=== PATIENT | male | born 1935 | race Caucasian/White ===

== ENCOUNTER 2024-03-25 21:19 | Inpatient (IN) | payer MEDICARE, SELFPAY ==
[2024-03-25] VITALS (9 sets, daily range): BP systolic 122–147; BP diastolic 65–105; BMI 18.0
[2024-03-25 17:25] LABS: % Basophils 0.3 % (0-2); % Immature Granulocytes 1.3 % (0-0.5); % Lymphocytes 10.7 % (20.5-51.1); % Monocytes 6.2 % (1.7-9.3); % Neutrophils 78.5 % (42.2-75.2); Absolute Eosinophils 0.3 10^3/uL (0-0.7); Absolute Immature Granulocytes 0.1 10^3/uL (0-0.05); Absolute Lymphocytes 1.1 10^3/uL (1.2-3.4); Absolute Monocytes 0.6 10^3/uL (0.1-0.6); Absolute Neutrophils 7.7 10^3/uL (1.4-6.5); Hematocrit 27.4 % (39.0-52.0); Hemoglobin 9.1 g/dL (13.0-18.0); Mean Corp Hgb Conc. 33.2 g/dL (33.0-37.0); Mean Corpuscular Volume 99.3 fL (80.0-94.0); Mean Platelet Volume 11.2 fL (7.4-10.4); Nucleated Red Blood Cells % 0 % (-); Platelet Count 167 10^3/uL (130-400); Red Blood Cell Count 2.76 10^6/uL (4.70-6.10); Red Cell Dist. Width 13.9 % (11.5-14.5); White Blood Cell Count 9.8 10^3/uL (4.8-10.8)
[2024-03-25 17:25] LABS: Urine Albumin Negative (Neg - Trace); Urine Bilirubin Negative (Negative); Urine Character Clear (Clear); Urine Color Yellow; Urine Glucose Negative (Negative); Urine Ketone Negative (Negative); Urine Leukocyte Trace (Negative); Urine Nitrite Negative (Negative); Urine Occult Blood Negative (Negative); Urine Urobilinogen Negative (Neg - 1+)
[2024-03-25 17:41] LABS: AST (SGOT) 26 U/L (17-59); Albumin 4.1 g/dl (3.5-5.0); Alkaline Phosphatase 72 U/L (38-126); Blood Urea Nitrogen 62 mg/dl (9-20); Calcium 9.9 mg/dl (8.4-10.2); Carbon Dioxide 27 mmol/L (22-30); Chloride 102 mmol/L (98-107); Glucose 125 mg/dl (70-99); Potassium 4.6 mmol/L (3.5-5.1); Sodium 140 mmol/L (135-145); Total Bilirubin 0.6 mg/dl (0.2-1.3); Total Protein 7.5 g/dl (6.3-8.2); eGFR 12.94
[2024-03-25 17:43] LABS: Urine Bacteria Few (Negative); Urine White Cell 16-20 /HPF (0-5)
[2024-03-25 17:48] LABS: ALT (SGPT) 12 U/L (0-50)
[2024-03-25 18:04] LABS: Erythrocyte Sed Rate 119 mm/hour (0-20)
[2024-03-25 18:27] LABS: Vitamin B12 > 1000 pg/ml (239-931)
--- NOTE | 2024-03-25 19:10 | ED.GENMED ---
History of Present Illness
General
Chief Complaint: Failure to Thrive
Time Seen by Provider: 03/25/24 18:34
History of Present Illness
History of Present Illness:
80-year-old male presents the emergency department with his son for evaluation of intermittent periods of confusion over the past week. He apparently had some difficulties urinating last week and saw his primary care physician, was started on
antibiotic for presumed UTI. He apparently had abdominal pain at that time which is since resolved. Son notes that he continues to have copious amounts of urine output and intermittent confusion over the past several days as well. Patient denies
any complaints at this time
Past History
Past History
ED Past Medical History: CAD, GERD, HTN, Hypercholesterolemia and Valvular disease; Negative Arrthythmia, Cancer or CVA
ED Past Surgical History: Appendectomy, Cardiac and Orthopedic
Social History
Tobacco: Non-smoker
Alcohol: None
Drug: None
Personal:
Living: alone
Employment: Retired
Review of Systems
Review of Systems
Allergies reviewed?: Yes
Phy Exam
Physical Exam
Physical Exam:
GEN: Thin, underweight, not cachectic
Eyes: PERRLA, EOMs intact, no scleral icterus
HENT: NCAT, oral mucosa moist
Lungs: CTAB, no wheezes, rales, rhonchi, normal chest wall excursion
Cardiac: RRR, no M/R/G, no peripheral edema. Radial pulses 2+ bilat
Abdomen: Soft however prominent suprapubic distention is noted
Neuro: AO x 3
MSK: No gross deformity or ecchymosis. No edema. No digital clubbing
Skin: No rashes, petechiae. Normal color, no pallor or jaundice.
Psych: Calm, cooperative, proper hygiene
Course
Orders/Labs/Results
Orders:
Orders
03/25/24 Breakfast
Cholesterol Lowering
At Your Request: Limited Participation
Cholesterol Lowering: Sodium, 2 Gram
03/25/24 17:05
Complete Blood Count/With Diff Urgent
Comprehensive Metabolic Panel Urgent
Erythrocyte Sed Rate Urgent
Vitamin B12 Urgent
03/25/24 17:15
Urinalysis Reflex To Culture Urgent
Date Specimen was Collected: 03/25/24
Time Specimen was Collected: 17:01
Urine Microscopic Reflex Cult Urgent
Urine Culture Urgent
ALIZA Source: U
Specimen Description:
Date Specimen was Collected: 03/25/24
Time Specimen was Collected: 17:01
03/25/24 20:25
EKG [Electrocardiogram (*1)] Stat
Reason for Study: Atrial Fibrillation
03/25/24 20:26
Admit/Transfer Patient As Directed
Co-Sign Provider:
Level of Care: Inpatient admission
Assign to:: Telemetry
Physician / Group: arjun
Diagnosis: uti
Reason for Telemetry: Arrhythmia
Date to Stop Telemetry: 03/28/24
Time to Stop Telemetry: 11:00
Reason for Hospitalization: uti
Expected length of stay greater than two midnights?: Yes
ELOS- Estimated Length of Stay in days: 3
I certify the patient meets the requirements for IP care: Yes
PRN Pain Medication Management As Directed
May give lesser potent ordered pain med per pt: No
preference::
Protocol:: Medication orders for pain may NOT be administered in
a manner that defers to patient preference. Follow
all order instructions as written.
Contact provider if ordering parameters for pain need
to be adjusted.
03/25/24 20:27
Code Status As Directed
Resuscitation Status: Full Code
03/25/24 20:39
CefTRIAXone [Rocephin] 1,000 mg IV NOW STA
03/25/24 20:53
Sterile Water [Sterile Water For Injection] 10 ml IV NOW STA
03/25/24 22:00
0.9% Sodium Chloride 500 ml [Nss] 500 ml IV 50 mls/hr
03/25/24 22:13
Acetaminophen [Tylenol] 650 mg PO Q4HPRN PRN
Bisacodyl [Dulcolax] 10 mg RECTAL [id number] PRN
Docusate W/Senna [Senokot-S] 1 tablet PO BIDPRN PRN
Polyethylene Glycol Powder [Miralax] 17 grams PO DAILYPRN PRN
03/25/24 22:13
UROLOGY CONSULT Routine
Consulting Provider: Panchito Sanchez
Was physician already notified: Yes
Activity As Directed
Activity Level: As Tolerated
Intake/ Output As Directed
Frequency: Per unit guidelines
Vital Signs As Directed
Frequency: Per unit guidelines
Weight As Directed
Frequency: Daily
03/26/24 05:17
Basic Metabolic Panel IN AM
Complete Blood Count/No Diff IN AM
03/26/24 06:00
Occupational Therapy Consult [Ot Eval And Treat] IN AM
Physical Therapy Consult [Pt Eval And Treat] IN AM
Activity Level: As Tolerated
03/26/24 08:00
Apixaban [Eliquis] 2.5 mg PO BID
Atorvastatin [Lipitor] 40 mg PO DAILY
Carvedilol [Coreg] 6.25 mg PO BID
03/26/24 20:00
CefTRIAXone [Rocephin] 1,000 mg IV Q24H
03/27/24 06:00
Basic Metabolic Panel IN AM
Complete Blood Count/No Diff IN AM
03/28/24 06:00
Basic Metabolic Panel IN AM
Complete Blood Count/No Diff IN AM
03/28/24 11:00
DC Protocol for Telemetry ONCE
03/29/24 06:00
Basic Metabolic Panel IN AM
Complete Blood Count/No Diff IN AM
03/30/24 06:00
Basic Metabolic Panel IN AM
Complete Blood Count/No Diff IN AM
Abnormal Lab Results
03/25/24 03/25/24
17:05 17:15
RBC 2.76 L 10^6/uL
(4.70-6.10)
Hgb 9.1 L g/dL
(13.0-18.0)
Hct 27.4 L %
(39.0-52.0)
MCV 99.3 H fL
(80.0-94.0)
MCH 33.0 H pg
(27.0-31.0)
MPV 11.2 H fL
(7.4-10.4)
Abs Immat Gran (auto) 0.1 H 10^3/uL
(0-0.05)
Absolute Neuts (auto) 7.7 H 10^3/uL
(1.4-6.5)
Absolute Lymphs (auto) 1.1 L 10^3/uL
(1.2-3.4)
Immature Gran % 1.3 H %
(0-0.5)
Neutrophils % 78.5 H %
(42.2-75.2)
Lymphocytes % 10.7 L %
(20.5-51.1)
ESR 119 H mm/hour
(0-20)
BUN 62 H mg/dl
(9-20)
Creatinine 4.2 H* mg/dL
(0.7-1.3)
Glucose 125 H mg/dl
(70-99)
Vitamin B12 > 1000 H pg/ml
(239-931)
Leukocyte Esterase Rfl Trace A
(Negative)
Urine RBC 3-6 A /HPF
(0-2)
Urine WBC (Reflex) 16-20 A /HPF
(0-5)
Urine Bacteria (Reflex) Few A
(Negative)
03/25/24 17:05
03/25/24 17:05
Vital Signs
Initial and Last Documented VS:
Initial Vital Signs
Temp Pulse Resp BP Pulse Ox
98.0 F 72 16 139/87 98
03/25/24 16:51 03/25/24 16:51 03/25/24 16:51 03/25/24 16:51 03/25/24 16:51
Last Documented Vital Signs
Temp Pulse Resp BP Pulse Ox
97.7 F 69 16 119/59 98
03/26/24 07:37 03/26/24 08:20 03/26/24 07:37 03/26/24 08:20 03/26/24 07:37
MDM/Problems Addressed
MDM/Problems Addressed:
Patient found to be in acute renal failure on the basis of obstructive uropathy likely due to BPH. Pfeiffer catheter was placed with greater than 1500 mL of urine drained. Will admit to the hospitalist service for further management
*Critical Care Note
Total Time (30-74mins, 75-104mins- exclusive of procedures): Not Applicable
ED Attending Note
-
Portions of this chart may have been created with voice recognition software.� Occasional wrong word or��sound alike� substitutions may have occurred due to the inherent limitations of voice recognition software.
Discharge Plan
Departure
Patient Disposition: Admit
Date of Disposition: 03/25/24
Time of Disposition: 19:33
Admit to: Med/Surg
Presentation/result/management discussed w/ accepting MD/DO: Hospitalist
Discharge Problem:
Acute kidney injury superimposed on CKD, Acute metabolic encephalopathy
Interventions
Interventions:
*Nursing Disposition Last Done: 03/25/24 22:12
Discharge Date and Time
Discharge Date/Time: 03/25/24 22:13
--- NOTE | 2024-03-25 19:55 | HPS.HSE ---
Addendum entered and electronically signed by Paty Samayoa DO 03/25/24 21:14:
The patient is seen and examined. I have reviewed the patient with Alie, and agree with her history and physical, assesment and plan of care as per below
VSS/AF
Lungs CTA b/l
Abd soft nt/nd, no peritoneal signs
Pfeiffer cath draining clear yellow urine 1700 mL output
Neuro no focal deficits
Labs reviewed
CARO due to post-obstructive uropathy
UTI, history of recurrent UTI, likely acute UTI
-Uro Cx
=Urine Cx pending
-close monitoring of I/O and daily weights
-gentle IV hydration overnight, likely has some underlying volume depletion/hold today's dose of Lasix and monitor closely
-repeat BMP in am
Original Note:
Family Physician
-
Family Physician: Tucker Nath
Chief Complaint
-
urinary frequency
History of Present Illness
88-year-old with past medical history for coronary artery disease, GERD, hypertension, hyperlipidemia, congestive heart failure presented to us with urinary frequency, dribbling and dysuria for past 3 weeks. Patient was treated with oral
antibiotics for urinary tract infection few weeks ago. Urinary symptoms persisted along with lethargic, confusion. Urinalysis were done twice since then which was negative for acute urinary infection. Patient was sleeping more than usual. Son
stated very poor appetite. Patient continued to have urinary frequency which prompted son to bring him to the hospital. Patient denied any fever, chills, chest pain, short of breath. Patient denies any headache, dizziness, syncopal episode.
Patient denied any abdominal pain, nausea, vomiting, diarrhea. Patient denied dysuria hematuria.
Upon arrival noted to have acute kidney injury. Positive urinalysis as well as urinary retention. Pfeiffer placed in the ER. Admitting for further management.
Medical History
Past Medical History
Past Medical History: Reports Other
Additional Past Medical History:
Hypertension
Paroxysmal A-fib
Chronic kidney disease stage III
Hyperlipidemia
Coronary artery disease
GERD
BPH
Osteoarthritis
Anemia
Abdominal aortic aneurysm
Past Surgical History: Reports Other
Additional Past Surgical History:
Aortic valve replacement
ICD
Coronary artery stent
Appendectomy
Left knee surgery
Tonsillectomy
Social History
Tobacco: Non-smoker
Alcohol: Occasional
Drug: None
Personal: Single
Living: Alone
Family History
Family History: Not pertinent
Allergies / Home Medications
Allergies reflects when Allergies were last updated in [facility].
Home Medications with original date entered in [facility]
Allergy/Medication List:
Allergies
Allergy/AdvReac Type Severity Reaction Status Date / Time
milk AdvReac Unknown Nausea / Verified 03/25/24 16:56
Vomiting
Home Medications
atorvastatin 40 mg tablet 40 mg PO DAILY 10/29/17
carvedilol 6.25 mg tablet 6.25 mg PO BID 08/18/21
furosemide 20 mg tablet 30 mg PO DAILY 08/18/21
apixaban 2.5 mg tablet (Eliquis) 2.5 mg PO BID 03/25/24
fgmbzhwr-kkvfzk-mutae extract 5 mg-6 mg-150 mg capsule (Fruit and Vegetable Daily) 1 cap PO DAILY 03/25/24
Review of Systems
-
Constitutional: Reports No Symptoms
EENT: Reports No Symptoms
Respiratory: Reports No Symptoms
Cardiac: Reports No Symptoms
Abdomen/GI: Reports No Symptoms
: Reports Dysuria, Frequency, Difficulty Voiding and Urgency
Musculoskeletal: Reports No Symptoms
Skin: Reports No Symptoms
Neurological: Reports No Symptoms
Endocrine: Reports No Symptoms
Hematologic/Lymphatic: Reports No Symptoms
Psych: Reports No Symptoms
Physical Exam
Vital Signs
Vital Signs
Temp Pulse Resp BP Pulse Ox
98.0 F 70 17 139/87 100
03/25/24 16:51 03/25/24 18:45 03/25/24 18:33 03/25/24 16:51 03/25/24 18:45
Physical Exam
General: Well Developed, Well Nourished and No Apparent Distress
HEENT: NormoCephalic, Moist mucous membranes and Atraumatic
Respiratory: Clear
Cardiac: S1/S2 and Regular Rhythm; No Murmur or Rub
GI: Soft, Non Tender, Non Distended and Normal Bowel Sounds; No Organomegaly
Rectal: Deferred by Provider
Genito-urinary: Pfeiffer
Musculoskeletal: No Clubbing, No Cyanosis and No Edema
Skin: No Rash
Neuro: Nonfocal/grossly intact
Psych: Calm
Laboratory Results
-
03/25/24 17:05
03/25/24 17:05
Laboratory Results
Total Bilirubin 0.6 mg/dl (0.2-1.3) 03/25/24 17:05
AST 26 U/L (17-59) 03/25/24 17:05
ALT 12 U/L (0-50) 03/25/24 17:05
Alkaline Phosphatase 72 U/L (38-126) 03/25/24 17:05
Data Reviewed
-
Lab Data: Labs Reviewed by me
Impression/Plan
-
#acute kidney injury on CKD stage 3 likely due to urinary retention
-Pfeiffer cath placed in ER
-monitor BMP in am
-Creatinine 4.2, BUN 2
urology consult
#metabolic encephalopathy likely from UTI
-failed out patient therapy
-iv ceftriaxone continued
-urine culture pending
# Anemia of chronic disease
-Hemoglobin stable at 9.1
-No active bleeding
-Continue to monitor
# Elevated ESR likely from acute kidney injury
#Cardiomyopathy, history of a biventricular pacemaker/AICD
# History of congestive heart failure
-Patient is not in acute exacerbation
-Hold Lasix due to CARO
-Strict CARIN, daily weight
# History of paroxysmal A-fib
-Obtain EKG Eliquis continued
#Coronary artery disease
# History of cardiac stent
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
repair 12/05/2017.
-We will continue aspirin 81 mg daily, Coreg
6.25 mg p.o. b.i.d., and Lipitor 40 mg daily.
# Hypertension
-We will continue Coreg 6.25 mg p.o. b.i.d. Blood
pressure is currently stable.
# Hyperlipidemia. Will continue Lipitor 40 mg p.o. daily.
#Gastroesophageal reflux disease. No current medications at
present time.
# Basal cell carcinoma. History to scalp with history of removal.
#.Benign prostatic hyperplasia. No current medications.
#.Deep vein thrombosis prophylaxis with Eliquis
#Patient is a full code.
[2024-03-25] MEDS: ROCEPHIN 1000 MG IV (21:05)
[2024-03-25] MEDS: STERILE WATER FOR INJECTION 10 ML IV (21:05)
[2024-03-25] MEDS: NSS 500 IV (22:36)
[2024-03-26] VITALS (8 sets, daily range): BP systolic 105–128; BP diastolic 54–71; PULSE 70–74; O2SAT 100; BMI 18.0
--- NOTE | 2024-03-26 04:27 | PTCARENOTE ---
pt admitted to room 337-2 from ED at approx 2230.
Pt AAOx2, disoriented to time. Bed alarm activated for safety.
ski lift mechanic placed, 100% AV Paced. EKG completed.
Received pt with indwelling cazares catheter - urine blood tinged/ciara in color.
wound care completed as documented. VSS. Pt's belongings at bedside, call shipman within reach.
[2024-03-26 06:12] LABS: Hematocrit 23.1 % (39.0-52.0); Hemoglobin 7.8 g/dL (13.0-18.0); Mean Corp Hgb Conc. 33.8 g/dL (33.0-37.0); Mean Corpuscular Hgb 32.6 pg (27.0-31.0); Mean Corpuscular Volume 96.7 fL (80.0-94.0); Mean Platelet Volume 10.7 fL (7.4-10.4); Platelet Count 145 10^3/uL (130-400); Red Blood Cell Count 2.39 10^6/uL (4.70-6.10); White Blood Cell Count 8.5 10^3/uL (4.8-10.8)
[2024-03-26 06:36] LABS: Blood Urea Nitrogen 59 mg/dl (9-20); Calcium 9.1 mg/dl (8.4-10.2); Carbon Dioxide 27 mmol/L (22-30); Chloride 107 mmol/L (98-107); Estimated Creatinine Clearance 11 ml/min; Glucose 80 mg/dl (70-99); Potassium 4.3 mmol/L (3.5-5.1); Sodium 141 mmol/L (135-145)
[2024-03-26] MEDS: COREG 6.25 MG PO (08:20)
[2024-03-26] MEDS: LIPITOR 40 MG PO (08:20)
[2024-03-26] MEDS: ELIQUIS 2.5 MG PO (08:20)
--- NOTE | 2024-03-26 10:44 | W.PN.HOSP.TC ---
Today's Communication/Plan
-
see A/P
Assessment / Plan
Assessment / Plan
HPI: 88-year-old with past medical history for coronary artery disease, GERD, hypertension, hyperlipidemia, congestive heart failure; presented with urinary frequency, dribbling and dysuria for 3 weeks.
Patient was treated with oral antibiotics for urinary tract infection few weeks ago.
Urinary symptoms persisted along with lethargic, confusion.
Urinalysis were done twice since then which was negative for acute urinary infection.
Patient continued to have urinary frequency which prompted son to bring him to the hospital.
CARO and urinary retention noted. Pfeiffer placed in the ER.
A/P:
# acute kidney injury on CKD stage 3 due to obstructive uropathy with acute urinary retention, likely due to BPH
Pfeiffer placed in ER
SCr 4.2 on admission, today at 3.5, cont to trend SCr
Cont gentle IVF for another 500 cc
Start Flomax
Check kidney US
urology consult
# Hematuria likely due to above
Hold DINING ROOM MAID Eliquis for now
observe hematuria
# metabolic encephalopathy likely from complicated UTI vs acute urinary retention
Follow urine Cx
Cont empiric ceftriaxone
# Anemia of chronic disease
Hemoglobin 7.8 today from 9.1 on admission likely due to hemodilution from IVF
No active bleeding
Continue to monitor
# Cardiomyopathy, history of a biventricular pacemaker/AICD
# History of congestive heart failure
Patient is not in acute exacerbation
Hold Lasix due to CARO
Strict CARIN, daily weight
# History of paroxysmal A-fib
Hold Eliquis for now with hematuria
# Coronary artery disease
# History of cardiac stent
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
continue aspirin 81 mg daily, Coreg 6.25 mg p.o. b.i.d., and Lipitor 40 mg daily.
# Hypertension
Continue Coreg 6.25 mg p.o. b.i.d.
Blood pressure is currently stable.
# Hyperlipidemia. Will continue Lipitor 40 mg p.o. daily.
# Gastroesophageal reflux disease.
# Basal cell carcinoma. History to scalp with history of removal.
Deep vein thrombosis prophylaxis with SCD, holding DINING ROOM MAID Eliquis
full code.
DW son on the phone
Anticipated Discharge: 24 - 48 hours
Subjective/Interval History
-
Date of Service: March 26, 2024
Objective Data
-
Labs:
Laboratory Results
03/26/24
05:17
WBC 8.5
Hgb 7.8 L
Hct 23.1 L
Plt Count 145
Sodium 141
Potassium 4.3
Chloride 107
Carbon Dioxide 27
BUN 59 H
Creatinine 3.5 H
Glucose 80
Calcium 9.1
Vital Signs:
Vital Signs
Temp Pulse Resp BP Pulse Ox
36.5 C 69 16 119/59 98
03/26/24 07:37 03/26/24 08:20 03/26/24 07:37 03/26/24 08:20 03/26/24 07:37
I&O
03/25/24 03/26/24 03/27/24
06:59 06:59 06:59
Intake Total 360 / 360
Output Total 1200 / 1200
Balance -840 / -840
Review of Systems
-
All other systems: Reviewed and negative
Physical Exam
-
General: Well Developed, Well Nourished, No Apparent Distress, Comfortable and Conversant; Negative Respiratory Distress
HEENT: Normocephalic, Atraumatic, Nose Appears Normal and Ears Appear Normal; Negative Oxygen
Respiratory: Clear to Auscultation and Non Labored Respirations; Negative Accessory Resp Muscle Use
Cardiac: Regular Rhythm and S1/S2
GI: Soft, Nontender, Nondistended and Normal Bowel Sounds
Genito-urinary: Pfeiffer
Skin: Warm and Dry
Neuro: Awake and Alert
Psych: Calm and Intact Judgement/Insight
Data Reviewed
-
Labs: Labs Reviewed by me
--- NOTE | 2024-03-26 11:17 | CONS.URO ---
Consultation
-
Performing Provider: Daniel
Reason for Consultation: Urinary retention, CARO
Medical History
History of Present Illness
88M without known significant past urologic history
Patient is currently a poor historian and cannot accurately recall recent urinary symptoms of the past month
He claims to have no bothersome voiding symptoms at baseline - review of outpatient charts does not suggest any chronic voiding symptoms or BPH medications
In mid February he saw his PCP for several days of urinary frequency and pain at the tip of his penis
Urinalysis was negative but he was treated for possible prostatitis/UTI with doxycycline. This seemed to initially help with symptoms
He saw his PCP 03/21 with recurrent bothersome symptoms, nocturia, dysuria, altered mental status
He was encouraged to present to hospital and was admitted
Treatment was started for suspected UTI
Patient found to be in significant urinary retention with CARO and a cazares was placed for 1500cc
Urology consulted for management of urinary retention
Past Medical History
Past Medical History: Other (Hypertension Paroxysmal A-fib Chronic kidney disease stage III Hyperlipidemia Coronary artery disease GERD BPH Osteoarthritis Anemia Abdominal aortic aneurysm)
Past Surgical History: Other (Aortic valve replacement ICD Coronary artery stent Appendectomy Left knee surgery Tonsillectomy)
Social History
Tobacco: Non-smoker
Alcohol: None
Drug: None
Family History
Family History: Reviewed & Not Pertinent
Allergies/Home Medications
Allergies
Allergy/AdvReac Type Severity Reaction Status Date / Time
milk Allergy Nausea / Verified 03/25/24 20:52
Vomiting
Home Medications
�Medication �Instructions �Recorded �Confirmed �Type
atorvastatin 40 mg tablet 40 mg PO DAILY High Cholesterol 10/29/17 03/25/24 History
carvedilol 6.25 mg tablet 6.25 mg PO BID Blood Pressure 08/18/21 03/25/24 History
furosemide 20 mg tablet 30 mg PO DAILY Fluid 08/18/21 03/25/24 History
Retention/Swelling
apixaban 2.5 mg tablet (Eliquis) 2.5 mg PO BID Blood Clot 03/25/24 03/25/24 History
Prevention/Tx
qvnhamzk-fytouf-prmpm extract 5 1 cap PO DAILY Supplement 03/25/24 03/25/24 History
mg-6 mg-150 mg capsule (Fruit and
Vegetable Daily)
Physical Exam
Vital Signs
Vital Signs
Temp Pulse Resp BP Pulse Ox
97.7 F 69 16 119/59 98
03/26/24 07:37 03/26/24 08:20 03/26/24 07:37 03/26/24 08:20 03/26/24 07:37
Lab / Testing Results
Laboratory Results
03/26/24 05:17
03/26/24 05:17
Physical Exam
General: Well Developed, Well Nourished and No Apparent Distress
Respiratory: Clear and Non Labored Respirations
GI: Soft and Non Tender
Genito-urinary: No Costovertebral Tend
Neuro: Awake and Alert
Psych: Calm and Intact Judgement
Assessment / Plan
-
88M with recurrent voiding symptoms, frequency, dysuria
Found to have CARO on CKD and large volume urinary retention 1500cc
Urinary retention
- Large volume on initial cazares placement
- Given severe bladder distension I would recommend maintaining cazares for 7-10 days prior to trial of void. Will arrange as outpatient after discharge
- With age and potential fall risk he is not a great candidate for alpha quinton, but could trial this as an inpatient with orthostatics
- Start tamsulosin 0.4mg to see if tolerated
CARO improving following catheter placement
Obtain renal bladder US to eval for hydronephrosis
Mild hematuria likely due to decompression of distended bladder. No intervention.
UTI
- Negative cultures and benign appearing urinalysis on outpatient evals 02/2024 and 03/21/24 suggest symptoms are probably more from acute on chronic urinary retention
- Low suspicion for infection at this time
- Continue antibiotics pending repeat culture
Data Reviewed
-
Lab Data: Labs Reviewed
Old Records: Reviewed
[2024-03-26] MEDS: FLOMAX 0.4 PO (11:47)
[2024-03-26] MEDS: NSS 500 IV (11:47)
--- NOTE | 2024-03-26 16:40 | CM ---
Alert awake confused patient who lives alone who lives in a 2 story home with 2 step to enter and 14 steps to bed and bathroom. He is independent in all activities of daily living.He was offered VN [facility] [place] [facility].Spoke
with son Stevie he agreed with [facility] . He will be setting up [facility] care givers.
No VN hx / No SNF history
Pharmacy [facility]
PCP DR Oswald
PLAN Home with [facility] if accepted and care givers set up by family
[2024-03-26] MEDS: COREG PO (19:45)
[2024-03-26] MEDS: ROCEPHIN 1000 MG IV (20:09)
[2024-03-26] MEDS: STERILE WATER FOR INJECTION 10 ML IV (20:12)
--- NOTE | 2024-03-27 03:20 | DOWNTIME ---
There was a [employer] Client Program Production Specialist Downtime on 03/27/2024 from 0100 to 03/27/2024 at 0255. Downtime documentation of patient's care, including medication administrations, has been reconciled in the electronic record per guidelines. Refer to the
patient's paper chart under the miscellaneous tab to see printed paper medication records and downtime forms.
[2024-03-27 04:01] VITALS: BP 108/68
[2024-03-27 06:00] VITALS: BMI 18.0
[2024-03-27 06:25] LABS: Hematocrit 22.9 % (39.0-52.0); Hemoglobin 7.6 g/dL (13.0-18.0); Mean Corp Hgb Conc. 33.2 g/dL (33.0-37.0); Mean Corpuscular Hgb 32.6 pg (27.0-31.0); Mean Corpuscular Volume 98.3 fL (80.0-94.0); Platelet Count 136 10^3/uL (130-400); Red Blood Cell Count 2.33 10^6/uL (4.70-6.10); White Blood Cell Count 8.5 10^3/uL (4.8-10.8)
[2024-03-27 06:26] LABS: Blood Urea Nitrogen 49 mg/dl (9-20); Calcium 8.7 mg/dl (8.4-10.2); Carbon Dioxide 28 mmol/L (22-30); Chloride 106 mmol/L (98-107); Estimated Creatinine Clearance 14 ml/min; Glucose 86 mg/dl (70-99); Potassium 4.2 mmol/L (3.5-5.1); Sodium 140 mmol/L (135-145); eGFR 21.98
[2024-03-27 07:00] VITALS: BP 100/49
[2024-03-27] MEDS: LIPITOR 40 MG PO (07:14)
[2024-03-27] MEDS: FLOMAX 0.4 PO (07:14)
[2024-03-27] MEDS: COREG PO (07:19)
--- NOTE | 2024-03-27 08:30 | W.PN.HOSP.TC ---
Addendum entered and electronically signed by Poornima Enamorado MD 03/27/24 13:40:
# Severe Protein Calorie Malnutrition of chronic illness
# Hematuria is enhanced by/associated with/due to Eliquis.
# Acute blood loss anemia on ACD
Addendum entered and electronically signed by Poornima Enamorado MD 03/27/24 10:20:
updated both sons on the phone
total time spent 51 min
Original Note:
Today's Communication/Plan
-
see A/P
Assessment / Plan
Assessment / Plan
HPI: 88-year-old with past medical history for coronary artery disease, GERD, hypertension, hyperlipidemia, congestive heart failure; presented with urinary frequency, dribbling and dysuria for 3 weeks.
Patient was treated with oral antibiotics for urinary tract infection few weeks ago.
Urinary symptoms persisted along with lethargic, confusion.
Urinalysis were done twice since then which was negative for acute urinary infection.
Patient continued to have urinary frequency which prompted son to bring him to the hospital.
CARO and urinary retention noted. Cazares placed in the ER.
A/P:
# acute kidney injury on CKD stage 3 due to obstructive uropathy with acute urinary retention, likely due to BPH
Cazares placed in ER
SCr 4.2 on admission, today at 2.7, cont to trend SCr
Hold further gentle IVF (EF 30-35%)
Started Flomax
kidney US: No hydronephrosis or nephrolithiasis.
Appreciate urology input: Given severe bladder distension, recommend maintaining cazares for 7-10 days prior to trial of void. Will arrange as outpatient after discharge
# Hematuria likely due to above
Hold DIANETIC COUNSELOR Eliquis for now
observe hematuria
blood consent obtained in case needing transfusion
# metabolic encephalopathy likely from acute urinary retention
MS returned to baseline
UTI ruled out, Urine Cx 20,000 CFU, Mixed molly present: Probable contamination
DC further empiric ceftriaxone
# Anemia of chronic disease
Hemoglobin 7.6 today from 9.1 on admission likely due to hemodilution from IVF
No active bleeding
Continue to monitor
blood consent obtained in case needing transfusion
# Cardiomyopathy, history of a biventricular pacemaker/AICD
# History of congestive heart failure
Patient is not in acute exacerbation
Hold Lasix due to CARO
Strict CARIN, daily weight
# History of paroxysmal A-fib
Hold DIANETIC COUNSELOR Eliquis for now with hematuria
# Coronary artery disease
# History of cardiac stent
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
continue aspirin 81 mg daily
Cont DIANETIC COUNSELOR Coreg reduce to 3.125 b.i.d. with holding parameter
Cont Lipitor 40 mg daily.
# Hypertension
Cont DIANETIC COUNSELOR Coreg, reduce to 3.125 b.i.d. with holding parameter
Monitor Blood pressure
# Hyperlipidemia. Will continue Lipitor 40 mg p.o. daily.
# Gastroesophageal reflux disease.
# Basal cell carcinoma. History to scalp with history of removal.
Deep vein thrombosis prophylaxis with SCD, holding DIANETIC COUNSELOR Eliquis
full code.
Dispo: PT OT rec SNF. However pt wants to go home, so HH will be arranged
DW RN
DW son on the phone
total time spent 51 min
Anticipated Discharge: Within 24 hours
Subjective/Interval History
-
Date of Service: March 27, 2024
Objective Data
-
Labs:
Laboratory Results
03/27/24
05:26
WBC 8.5
Hgb 7.6 L
Hct 22.9 L
Plt Count 136
Sodium 140
Potassium 4.2
Chloride 106
Carbon Dioxide 28
BUN 49 H
Creatinine 2.7 H
Glucose 86
Calcium 8.7
Vital Signs:
Vital Signs
Temp Pulse Resp BP Pulse Ox
36.4 C 71 17 100/49 98
03/27/24 07:00 03/27/24 07:00 03/27/24 07:00 03/27/24 07:19 03/27/24 07:00
I&O
03/26/24 03/27/24 03/28/24
06:59 06:59 06:59
Intake Total 360 / 360 1260 / 1260
Output Total 1200 / 1200 2074 / 2074
Balance -840 / -840 -815 / -815
--- NOTE | 2024-03-27 09:20 | PN.CDI ---
CDI
- -
CDI:
Physician Documentation Request
Admit Date: 03/25/24 21:19
Dear Doctor Fei,
Please review the following and provide your response in the progress notes.
Clinical Indicators:
Clinical Nursing Director, 03/26
#...BMI < 19.
#Pt reports at one time was over 200 lbs.
#...RD able to observe severe fat loss over tricept, protrusion of clavical,
#...temporal wasting, orbital area sunken in, apparent ribs.
#With observed muscle and fat wasting and < 75% estimated needs > 1 month pt meets
#...AND/ASPEN criteria for severe protein calorie malnutrition of chronic illness.
Based on the above and your clinical assessment and the recognized standards for malnutrition, please clarify which of the following best reflects the patient's nutritional status:
Severe Protein Calorie Malnutrition of chronic illness
Other level of malnutrition is present(Mild, moderate, etc.)
Other (please specify)
[place] Criteria (ACP Hospitalist 2017)
2 or more criteria must be present for either
non severe or severe malnutrition
Note that the criteria differs related to the
presence of an acute or chronic illness
Chronic Illness
Energy Intake Non Severe: <75% for >1 month
Severe: <75% for >1 month
Weight Loss Non Severe: 5% over 1 month
7.5% over 3 months
10% over 6 months
20% over 1 year
Severe: >5% over 1 month
>7.5% over 3 months
>10% over 6 months
>20% over 1 year
Body Fat Non Severe: Mild Loss
Severe: Severe Loss
Muscle Mass Non Severe: Mild Loss
Severe: Severe Loss
Use of terms such as suspected, likely, concern for, or probable (associated with a specific diagnosis that is being evaluated, monitored, or treated as if it exists) are acceptable and can be coded in the inpatient setting, when documented at the
time of discharge.
Thank you,
Cher Batres RN BSN CCDS
CDI Specialist
please contact via tiger text
Please use your independent medical judgment in providing your response.
--- NOTE | 2024-03-27 09:29 | PN.CDI ---
CDI
- -
CDI:
Physician Documentation Request
Admit Date: 03/25/24 21:19
Dear Doctor Fei,
Please review the following and provide your response in the progress notes.
Clinical Indicators:
PN, 03/26
# acute kidney injury on CKD stage 3 due to
#...obstructive uropathy with acute urinary retention, likely due to BPH
# Hematuria likely due to above
Hold PHARMACOVIGILANCE SCIENTIST Eliquis for now
Please clarify the relationship, if any, between these conditions:
Yes, Hematuria is enhanced by/associated with/due to Eliquis.
No, Hematuria is not enhanced by/associated with/due to Eliquis but it is due to ___. (Please specify)
Other(please specify)
Use of terms such as suspected, likely, concern for, or probable (associated with a specific diagnosis that is being evaluated, monitored, or treated as if it exists) are acceptable and can be coded in the inpatient setting, when documented at the
time of discharge.
Thank you,
Cher Batres RN BSN CCDS
CDI Specialist
please contact via tiger text
Please use your independent medical judgment in providing your response.
--- NOTE | 2024-03-27 09:35 | PN.CDI ---
CDI
- -
CDI:
Physician Documentation Request
Admit Date: 03/25/24 21:19
Dear Doctor Fei,
Please review the following and provide your response in the progress notes.
Clinical Indicators:
PN, 03/26
# Hematuria likely due to above
#...Hold FILTER SCREEN CLEANER Eliquis for now
# Anemia of chronic disease
Hemoglobin 7.6 today from 9.1 on admission
#...likely due to hemodilution from IVF
#No active bleeding
#blood consent obtained in case needing transfusion
Laboratory Tests
03/25/24 03/26/24 03/27/24
17:05 05:17 05:26
Hgb 9.1 L 7.8 L 7.6 L
Based on the above please clarify which of the following is the most likely type of anemia evaluated, monitored and/or treated?
Acute blood loss anemia with baseline chronic anemia (Specify type)
Multifactorial acute blood loss on chronic anemia, (CKD, hematuria, hemodilution IVF, eliquis, etc.)
Anemia of chronic disease - indicate if neoplastic disease, CKD or other
Other(please specify)
Use of terms such as suspected, likely, concern for, or probable (associated with a specific diagnosis that is being evaluated, monitored, or treated as if it exists) are acceptable and can be coded in the inpatient setting, when documented at the
time of discharge.
Thank you,
Cher Batres LEGAL EDITOR CCDS
CDI Specialist
please contact via tiger text
Please use your independent medical judgment in providing your response.
[2024-03-27 11:00] VITALS: BP 116/61
[2024-03-27 15:28] VITALS: BP 127/48
--- NOTE | 2024-03-27 17:21 | W.PN.URO.CBU ---
Today's Communication / Plan
-
Maintain cazares at discharge
Continue tamsulosin
Assessment / Plan
-
88M with recurrent voiding symptoms, frequency, dysuria
Found to have CARO on CKD and large volume urinary retention 1500cc
Urinary retention
- Large volume on initial cazares placement
- Given severe bladder distension I would recommend maintaining cazares for 7-10 days prior to trial of void. Will arrange as outpatient after discharge middle of next week
- With age and potential fall risk he is not a great candidate for alpha quinton, but could trial this as an inpatient with orthostatics
- Continue tamsulosin 0.4mg
CARO improving following catheter placement
Renal bladder US showed no hydronephrosis
Urine culture negative for UTI
Mild hematuria likely due to decompression of distended bladder. No intervention other than hold anticoagulation until resolved x48hrs
Diagnosis
-
Date of Service: March 27, 2024
-
Patient Diagnosis:
Urinary retention
CARO
Post Op Day:
Subjective
-
Tolerating cazares well
CARO improved
Objective
-
Vital Signs
Temp Pulse Resp BP Pulse Ox
97.6 F 71 17 127/48 98
03/27/24 15:28 03/27/24 15:28 03/27/24 15:28 03/27/24 15:28 03/27/24 15:28
Intake and Output
03/26/24 03/27/24 03/28/24
06:59 06:59 06:59
Intake Total 360 / 360 1260 / 1260
Output Total 1200 / 1200 2074
Balance -840 / -840 -815 / -815
Intake:
Oral fluids 360 / 360 1260 / 1260
Output:
Urine, Cazares 1200 / 1200 2074
Laboratory Results
03/27/24 05:26
03/27/24 05:26
Physical Exam
-
General - well developed, well nourished, no acute distress
Chest - clear bilaterally
Abdomen - soft, non-tender
- cazares in place, minimal hematuria
Skin - warm & dry with no rash
Neuro - AOx3, no motor deficits
Extremities - no clubbing, no cyanosis, no edema
[2024-03-27 19:35] VITALS: BP 124/61
[2024-03-27] MEDS: COREG 3.125 MG PO (20:10)
[2024-03-27 23:53] VITALS: BP 117/80
[2024-03-28 03:55] VITALS: BP 115/54
[2024-03-28 06:00] VITALS: BMI 17.9
[2024-03-28 06:26] LABS: Hematocrit 23.6 % (39.0-52.0); Hemoglobin 7.9 g/dL (13.0-18.0); Mean Corp Hgb Conc. 33.5 g/dL (33.0-37.0); Mean Corpuscular Hgb 32.9 pg (27.0-31.0); Mean Corpuscular Volume 98.3 fL (80.0-94.0); Mean Platelet Volume 11.2 fL (7.4-10.4); Platelet Count 139 10^3/uL (130-400); White Blood Cell Count 9.2 10^3/uL (4.8-10.8)
[2024-03-28 06:32] LABS: Blood Urea Nitrogen 43 mg/dl (9-20); Calcium 8.4 mg/dl (8.4-10.2); Carbon Dioxide 27 mmol/L (22-30); Chloride 103 mmol/L (98-107); Estimated Creatinine Clearance 16 ml/min; Glucose 86 mg/dl (70-99); Potassium 4.3 mmol/L (3.5-5.1); Sodium 138 mmol/L (135-145); eGFR 25.32
[2024-03-28 07:00] VITALS: BP 108/55
[2024-03-28] MEDS: COREG 3.125 MG PO ×2 (07:58→19:44)
[2024-03-28] MEDS: FLOMAX 0.4 PO (07:58)
[2024-03-28] MEDS: LIPITOR 40 MG PO (07:58)
[2024-03-28 09:34] VITALS: BP 111/56; PULSE 70; O2SAT 98
--- NOTE | 2024-03-28 11:01 | W.PN.HOSP.TC ---
Today's Communication/Plan
-
d/c planning for snf rehab
Assessment / Plan
Assessment / Plan
# Acute kidney injury on CKD stage 3
due to obstructive uropathy with acute urinary retention, likely due to BPH
Cazares placed in ER
SCr 4.2 on admission, today at 2.7, cont to trend SCr
Hold further gentle IVF (EF 30-35%)
Started Flomax
kidney US: No hydronephrosis or nephrolithiasis.
Appreciate urology input: Given severe bladder distension, recommend maintaining cazares for 7-10 days prior to trial of void. Will arrange as outpatient after discharge
# Hematuria likely due to above
Hold EQUAL OPPORTUNITY COUNSELOR Eliquis for now
blood consent obtained in case needing transfusion
hematuria improved.
# metabolic encephalopathy likely from acute urinary retention
MS returned to baseline
UTI ruled out, Urine Cx 20,000 CFU, Mixed molly present: Probable contamination
DC further empiric ceftriaxone
# Anemia of chronic disease
Hemoglobin 7.6 today from 9.1 on admission likely due to hemodilution from IVF
No active bleeding
Continue to monitor
blood consent obtained in case needing transfusion
# Cardiomyopathy, history of a biventricular pacemaker/AICD
# History of congestive heart failure
Patient is not in acute exacerbation
Strict CARIN, daily weight
continue holding lasix for now. no signs of volume overload
# History of paroxysmal A-fib
continue holding eliquis.
# Coronary artery disease
# History of cardiac stent
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
continue aspirin 81 mg daily
Cont Lipitor 40 mg daily.
Hypertension
Hyperlipidemia
Gastroesophageal reflux disease.
Basal cell carcinoma. History to scalp with history of removal.
DVT PPX - scd
Full code
Anticipated Discharge: Today
Subjective/Interval History
-
Date of Service: March 28, 2024
still have minimal blood containing urine in cazares
no abd pain/fever/n/v overnight
Objective Data
-
Labs:
Laboratory Results
03/28/24
05:15
WBC 9.2
Hgb 7.9 L
Hct 23.6 L
Plt Count 139
Sodium 138
Potassium 4.3
Chloride 103
Carbon Dioxide 27
BUN 43 H
Creatinine 2.4 H
Glucose 86
Calcium 8.4
Vital Signs:
Vital Signs
Temp Pulse Resp BP Pulse Ox
97.8 F 71 17 108/55 98
03/28/24 07:00 03/28/24 07:00 03/28/24 07:00 03/28/24 07:00 03/28/24 08:00
I&O
03/27/24 03/28/24 03/29/24
06:59 06:59 06:59
Intake Total 1260 / 1260 1200 / 1200
Output Total 2075 / 5 1650 / 1650
Balance -815 / -815 -450 / -450
Review of Systems
-
Respiratory: Reports No Symptoms
Cardiac: Reports No Symptoms
Abdomen/GI: Reports No Symptoms
Physical Exam
-
General: Respiratory Distress, Conversant and Cachectic
HEENT: Negative Oxygen
Respiratory: Clear to Auscultation
Cardiac: Regular Rhythm and S1/S2; Negative Murmur
GI: Soft, Nontender and Nondistended
Genito-urinary: Cazares (tea colored urine)
Neuro: Awake, Alert, Oriented and No Motor Deficits
Psych: Calm and Intact Judgement/Insight
[2024-03-28] MEDS: PREVNAR 20 0.5 ML IM (12:46)
--- NOTE | 2024-03-28 15:05 | CM ---
Spoke with son Kwasi pt in room.
Son requested [facility] [place].Spoke with Rolf at [facility] pt did not qualify.
Son requested [facility].
Explained after Snf located will need auth.
Pt has [facility].
Son is setting up care givers when pt does come home.
PLAN To SNF after located and auth obtained.
[2024-03-28 15:58] VITALS: BP 107/51
[2024-03-28 23:30] VITALS: BP 107/50
[2024-03-29 06:00] VITALS: BMI 17.8
[2024-03-29 06:07] LABS: White Blood Cell Count 9.3 10^3/uL (4.8-10.8)
[2024-03-29 06:08] LABS: Hematocrit 23.3 % (39.0-52.0); Hemoglobin 7.8 g/dL (13.0-18.0); Mean Corp Hgb Conc. 33.5 g/dL (33.0-37.0); Mean Corpuscular Hgb 32.8 pg (27.0-31.0); Mean Corpuscular Volume 97.9 fL (80.0-94.0); Mean Platelet Volume 11.4 fL (7.4-10.4); Platelet Count 143 10^3/uL (130-400); Red Blood Cell Count 2.38 10^6/uL (4.70-6.10); Red Cell Dist. Width 13.9 % (11.5-14.5)
[2024-03-29 06:39] LABS: Blood Urea Nitrogen 48 mg/dl (9-20); Calcium 8.2 mg/dl (8.4-10.2); Carbon Dioxide 26 mmol/L (22-30); Chloride 103 mmol/L (98-107); Estimated Creatinine Clearance 17 ml/min; Glucose 93 mg/dl (70-99); Potassium 4.2 mmol/L (3.5-5.1); Sodium 138 mmol/L (135-145)
[2024-03-29] MEDS: FLOMAX 0.4 PO (07:22)
[2024-03-29] MEDS: LIPITOR 40 MG PO (07:22)
[2024-03-29] MEDS: COREG 3.125 MG PO ×2 (07:22→21:05)
[2024-03-29 07:30] VITALS: BP 112/60
--- NOTE | 2024-03-29 13:20 | W.PN.HOSP.TC ---
Today's Communication/Plan
-
discharge planning for rehab
Assessment / Plan
Assessment / Plan
# Acute kidney injury on CKD stage 3
due to obstructive uropathy with acute urinary retention, likely due to BPH
Cazares placed in ER
SCr 4.2 on admission, today at 2.7, cont to trend SCr
Hold further gentle IVF (EF 30-35%)
Started Flomax
kidney US: No hydronephrosis or nephrolithiasis.
Appreciate urology input: Given severe bladder distension, recommend maintaining cazares for 7-10 days prior to trial of void. Will arrange as outpatient after discharge
# Hematuria likely due to above
Hold GUIDE DELEGATE Eliquis for now. plan to resume in 48 hrs.
blood consent obtained in case needing transfusion
hematuria improved.
# metabolic encephalopathy likely from acute urinary retention
MS returned to baseline
UTI ruled out, Urine Cx 20,000 CFU, Mixed molly present: Probable contamination
DC further empiric ceftriaxone
# Anemia of chronic disease
Hemoglobin 7.6 today from 9.1 on admission likely due to hemodilution from IVF
No active bleeding
Continue to monitor
blood consent obtained in case needing transfusion
# Cardiomyopathy, history of a biventricular pacemaker/AICD
# History of congestive heart failure
Patient is not in acute exacerbation
Strict CARIN, daily weight
continue holding lasix for now. no signs of volume overload
cr drifting down to baseline
# History of paroxysmal A-fib
continue holding eliquis.
# Coronary artery disease
# History of cardiac stent
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
continue aspirin 81 mg daily
Cont Lipitor 40 mg daily.
Hypertension
Hyperlipidemia
Gastroesophageal reflux disease.
Basal cell carcinoma. History to scalp with history of removal.
DVT PPX - scd
Full code
Anticipated Discharge: Within 24 hours
Subjective/Interval History
-
Date of Service: March 29, 2024
resting comfortably in bed
no issues overnight
Objective Data
-
Labs:
Laboratory Results
03/29/24
05:33
WBC 9.3
Hgb 7.8 L
Hct 23.3 L
Plt Count 143
Sodium 138
Potassium 4.2
Chloride 103
Carbon Dioxide 26
BUN 48 H
Creatinine 2.2 H
Glucose 93
Calcium 8.2 L
Vital Signs:
Vital Signs
Temp Pulse Resp BP Pulse Ox
97.5 F 71 16 112/60 98
03/29/24 07:30 03/29/24 07:30 03/29/24 07:30 03/29/24 07:30 03/29/24 07:45
I&O
03/28/24 03/29/24 03/30/24
06:59 06:59 06:59
Intake Total 1200 / 1200 600 / 600
Output Total 1650 / 1650 1250 / 1250
Balance -450 / -450 -650 / -650
Review of Systems
-
Respiratory: Reports No Symptoms
Cardiac: Reports No Symptoms
Abdomen/GI: Reports No Symptoms
Physical Exam
-
General: Respiratory Distress, Conversant and Cachectic
HEENT: Negative Oxygen
Respiratory: Clear to Auscultation
Cardiac: Regular Rhythm and S1/S2; Negative Murmur
GI: Soft, Nontender and Nondistended
Genito-urinary: Cazares (tea colored urine)
Neuro: Awake, Alert, Oriented and No Motor Deficits
Psych: Calm and Intact Judgement/Insight
--- NOTE | 2024-03-29 15:30 | CM ---
Addendum entered by Katherine Walters RN 03/29/24 17:19:
Spoke with son Han and Estevan . Additional SNF placed in care port. [facility]Wi need auth with [employer] .
Original Note:
PT OT recommended SNF.
Son and pt wanted [facility] . [facility] called this am Care port down . Clinical faxed .[facility] does not accept [facility] care.
Spoke with [facility] they do not have a male bed.
Spoke with Jennifer from [facility] who are not accepting any pt who are not a [facility] villager this weekend.
Spoke with Son Stevie [phone] explained above.He said he will call back after reviewing [employer].
Will need auth.
PLAN Will need to locate Snf and obtained auth
[2024-03-29 15:45] VITALS: BP 109/63
[2024-03-29 16:10] VITALS: BP 111/55; PULSE 71; O2SAT 99
[2024-03-29 23:13] VITALS: BP 105/50
[2024-03-30 06:00] VITALS: BMI 17.5
[2024-03-30 07:30] VITALS: BP 103/53
[2024-03-30 07:45] LABS: Hemoglobin 8.1 g/dL (13.0-18.0); Mean Corp Hgb Conc. 33.8 g/dL (33.0-37.0); Mean Corpuscular Hgb 33.8 pg (27.0-31.0); Mean Platelet Volume 11.2 fL (7.4-10.4); Platelet Count 148 10^3/uL (130-400); Red Cell Dist. Width 13.9 % (11.5-14.5); White Blood Cell Count 8.2 10^3/uL (4.8-10.8)
[2024-03-30 08:12] LABS: Blood Urea Nitrogen 47 mg/dl (9-20); Calcium 8.2 mg/dl (8.4-10.2); Carbon Dioxide 25 mmol/L (22-30); Chloride 103 mmol/L (98-107); Estimated Creatinine Clearance 18 ml/min; Glucose 82 mg/dl (70-99); Potassium 4.3 mmol/L (3.5-5.1); Sodium 137 mmol/L (135-145); eGFR 31.51
[2024-03-30] MEDS: LIPITOR 40 MG PO (08:45)
[2024-03-30] MEDS: FLOMAX 0.4 PO (08:45)
[2024-03-30] MEDS: COREG 3.125 MG PO ×2 (08:45→20:14)
--- NOTE | 2024-03-30 09:40 | W.PN.HOSP.TC ---
Today's Communication/Plan
-
see bold
Assessment / Plan
Assessment / Plan
Gen: NAD, AAOx3, appears chronically ill malnourished
Eyes: EOMI, PERRLA, no scleral icterus.
Neck: supple.
CV: RRR, +S1/S2, no m/r/g.
Resp: CTAB, no rales, wheezes, or rhonchi.
Abd: +BS, soft, NT, ND
Skin: No rashes.
Neuro: CN 2-12 intact, non-focal.
Psych: Normal mood and affect.
Acute metabolic encephalopathy and CARO on CKD3 due to obstructive uropathy with acute urinary retention likely due to BPH :
-Cazares placed in ER
-Cr 4.2 on admission, now 2.0 after IVFs. Cr was 1.6 on 08/01/18. I suspect that the pt is close to or at baseline Cr at this time.
-Flomax started
-Renal US: No hydronephrosis or nephrolithiasis.
-Initially there was a concern for urinary tract infection the patient was on Rocephin. Urine culture contaminated and only had 20,000 colony formation units. Urinary tract infection was ruled out and Rocephin was stopped.
-Appreciate urology input: Given severe bladder distension, recommend maintaining cazares for 7-10 days prior to trial of void. Will arrange as outpatient after discharge.
Hematuria:
-Likely due to obstructive uropathy
-Eliquis has been on hold, plan to resume on March 31, 2024
Anemia of chronic disease:
-The patient's hemoglobin drop was due to acute blood loss anemia from hematuria as well as hemodilution from IV fluids
-Hb stable
Other problems:
Underweight
Chronic HFrEF s/p BiV ICD: Lasix currently on hold. Cont Coreg.
PAF: resume Eliquis 03/31/24
CAD with h/o stent and CABG with AV repair 12/05/17: cont BB/statin
Essential Hypertension: cont Coreg
Hyperlipidemia: cont statin
GERD: start PPI
h/o Basal cell carcinoma on scalp s/p removal
Patient's son updated at bedside
FULL/SCDs
Medically cleared for discharge. Case management aware.
Anticipated Discharge: Today
Subjective/Interval History
-
Date of Service: March 30, 2024
Objective Data
-
Labs:
Laboratory Results
03/30/24
05:42
WBC 8.2
Hgb 8.1 L
Hct 24.0 L
Plt Count 148
Sodium 137
Potassium 4.3
Chloride 103
Carbon Dioxide 25
BUN 47 H
Creatinine 2.0 H
Glucose 82
Calcium 8.2 L
Vital Signs:
Vital Signs
Temp Pulse Resp BP Pulse Ox
98.1 F 71 16 103/53 98
03/30/24 07:30 03/30/24 07:30 03/30/24 07:30 03/30/24 08:45 03/30/24 07:30
I&O
03/29/24 03/30/24 03/31/24
06:59 06:59 06:59
Intake Total 600 / 600 840 / 840
Output Total 1250 / 1250 1250 / 1250
Balance -650 / -650 -410 / -410
--- NOTE | 2024-03-30 13:09 | CM ---
Case management following for d/c planning
Spoke with pts sons - updated on status of referrals sent
Aware will need insurance auth once bed obtained
Discussed SNF vs home with 03/04 care-takers
Will give list of care takers with family members
Plan - anticipate snf when bed obtained
[2024-03-30 15:45] VITALS: BP 106/50
[2024-03-30 23:32] VITALS: BP 98/38
[2024-03-31 06:00] VITALS: BMI 17.8
[2024-03-31 07:19] VITALS: BP 118/58
--- NOTE | 2024-03-31 09:37 | W.PN.HOSP.TC ---
Today's Communication/Plan
-
see bold
Assessment / Plan
Assessment / Plan
Gen: remains NAD, AAOx3, appears chronically ill malnourished
Eyes: EOMI, PERRLA, no scleral icterus.
Neck: supple.
CV: remains RRR, +S1/S2, no m/r/g.
Resp: remains CTAB, no rales, wheezes, or rhonchi.
Abd: +BS, soft, NT, ND
Skin: No rashes.
Neuro: CN 2-12 intact, non-focal.
Psych: Normal mood and affect.
Acute metabolic encephalopathy and CARO on CKD3 due to obstructive uropathy with acute urinary retention likely due to BPH:
-Cazares placed in ER
-Cr 4.2 on admission, now 2.0 after IVFs. Cr was 1.6 on 08/01/18. I suspect that the pt is close to or at baseline Cr at this time.
-Flomax started
-Renal US: No hydronephrosis or nephrolithiasis.
-Initially there was a concern for urinary tract infection the patient was on Rocephin. Urine culture contaminated and only had 20,000 colony formation units. Urinary tract infection was ruled out and Rocephin was stopped.
-Appreciate urology input: Given severe bladder distension, recommend maintaining cazares for 7-10 days prior to trial of void. Will arrange as outpatient after discharge.
Hematuria:
-Likely due to obstructive uropathy
-Eliquis has been on hold, resume today
Anemia of chronic disease:
-The patient's hemoglobin drop was due to acute blood loss anemia from hematuria as well as hemodilution from IV fluids
-Hb stable
Other problems:
Underweight
Chronic HFrEF s/p BiV ICD: Lasix currently on hold. Cont Coreg.
PAF: resume Eliquis 03/31/24
CAD with h/o stent and CABG with AV repair 12/05/17: cont BB/statin
Essential Hypertension: cont Coreg
Hyperlipidemia: cont statin
GERD: start PPI
h/o Basal cell carcinoma on scalp s/p removal
FULL/SCDs
Remains medically cleared for discharge. Case management aware.
Anticipated Discharge: Today
Subjective/Interval History
-
Date of Service: March 31, 2024
Objective Data
-
Vital Signs:
Vital Signs
Temp Pulse Resp BP Pulse Ox
97.9 F 71 15 118/58 96
03/31/24 07:19 03/31/24 07:19 03/31/24 07:19 03/31/24 07:19 03/31/24 07:19
I&O
03/30/24 03/31/24 04/01/24
06:59 06:59 06:59
Intake Total 840 / 840 840 / 840
Output Total 1250 / 1250 1075 / 1075
Balance -410 / -410 -235 / -235
[2024-03-31] MEDS: FLOMAX 0.4 PO (09:41)
[2024-03-31] MEDS: LIPITOR 40 MG PO (09:41)
[2024-03-31] MEDS: COREG 3.125 MG PO ×2 (09:41→21:01)
[2024-03-31 15:25] VITALS: BP 108/50
[2024-03-31] MEDS: ELIQUIS 2.5 MG PO (21:01)
[2024-03-31 23:06] VITALS: BP 105/52
[2024-04-01 05:50] LABS: Hematocrit 22.9 % (39.0-52.0); Hemoglobin 7.7 g/dL (13.0-18.0); Mean Corp Hgb Conc. 33.6 g/dL (33.0-37.0); Mean Corpuscular Hgb 33.2 pg (27.0-31.0); Mean Corpuscular Volume 98.7 fL (80.0-94.0); Mean Platelet Volume 11.1 fL (7.4-10.4); Platelet Count 153 10^3/uL (130-400); Red Blood Cell Count 2.32 10^6/uL (4.70-6.10); White Blood Cell Count 8.2 10^3/uL (4.8-10.8)
[2024-04-01 06:00] VITALS: BMI 18.1
[2024-04-01 06:11] LABS: Blood Urea Nitrogen 46 mg/dl (9-20); Calcium 8.3 mg/dl (8.4-10.2); Carbon Dioxide 31 mmol/L (22-30); Chloride 103 mmol/L (98-107); Estimated Creatinine Clearance 20 ml/min; Glucose 91 mg/dl (70-99); Potassium 4.5 mmol/L (3.5-5.1); Sodium 137 mmol/L (135-145); eGFR 33.51
[2024-04-01 07:30] VITALS: BP 92/53
[2024-04-01] MEDS: FLOMAX 0.4 PO (08:41)
[2024-04-01] MEDS: LIPITOR 40 MG PO (08:41)
[2024-04-01] MEDS: ELIQUIS 2.5 MG PO ×2 (08:41→20:40)
[2024-04-01] MEDS: COREG PO (08:41)
[2024-04-01 11:50] VITALS: PULSE 72; O2SAT 96
--- NOTE | 2024-04-01 12:54 | CM ---
All SNF did not take insurance or had no beds today except [facility].
Spoke with son Han he accepted [facility] for SNF.
[facility] with [facility] [phone] Auth started Clinical faxed to [phone] Ref # [id number] .
[facility] [address]
[facility]
report [phone] ext [phone]
fax [phone]
Plan To [facility] after auth
--- NOTE | 2024-04-01 13:54 | W.PN.HOSP.TC ---
Today's Communication/Plan
-
discharge planning for rehab
Assessment / Plan
Assessment / Plan
Acute metabolic encephalopathy and CARO on CKD3 due to obstructive uropathy with acute urinary retention likely due to BPH:
-Cazares placed in ER
-Cr 4.2 on admission, now 2.0 after IVFs. Cr was 1.6 on 08/01/18. continues to trend down and 1.9 today
-Flomax started
-Renal US: No hydronephrosis or nephrolithiasis.
-Initially there was a concern for urinary tract infection the patient was on Rocephin. Urine culture contaminated and only had 20,000 colony formation units. Urinary tract infection was ruled out and Rocephin was stopped.
-Appreciate urology input: Given severe bladder distension, recommend maintaining cazares for 7-10 days prior to trial of void. Will arrange as outpatient after discharge.
Hematuria
exacerbated by Eliquis use
-Likely due to obstructive uropathy
Anemia of chronic disease:
-The patient's hemoglobin drop was due to acute blood loss anemia from hematuria as well as hemodilution from IV fluids
-Hb stable
Other problems:
Underweight
Chronic HFrEF s/p BiV ICD: Lasix currently on hold. Cont Coreg.
PAF: resume Eliquis 03/31/24
CAD with h/o stent and CABG with AV repair 12/05/17: cont BB/statin
Essential Hypertension: cont Coreg
Hyperlipidemia: cont statin
GERD: start PPI
h/o Basal cell carcinoma on scalp s/p removal
Full code/SCDs
Anticipated Discharge: Within 24 hours
Subjective/Interval History
-
Date of Service: April 01, 2024
no issues overnight
clear urine
Objective Data
-
Labs:
Laboratory Results
04/01/24
05:30
WBC 8.2
Hgb 7.7 L
Hct 22.9 L
Plt Count 153
Sodium 137
Potassium 4.5
Chloride 103
Carbon Dioxide 31 H
BUN 46 H
Creatinine 1.9 H
Glucose 91
Calcium 8.3 L
Vital Signs:
Vital Signs
Temp Pulse Resp BP Pulse Ox
97.6 F 71 16 92/53 95
04/01/24 07:30 04/01/24 07:30 04/01/24 07:30 04/01/24 07:30 04/01/24 08:00
I&O
03/31/24 04/01/24 04/02/24
06:59 06:59 06:59
Intake Total 840 / 840 300 / 300
Output Total 1075 / 1075 1250 / 1250
Balance -235 / -235 -950 / -950
Review of Systems
-
Respiratory: Reports No Symptoms
Cardiac: Reports No Symptoms
Abdomen/GI: Reports No Symptoms
Physical Exam
-
General: Respiratory Distress, Conversant and Cachectic
HEENT: Negative Oxygen
Respiratory: Clear to Auscultation
Cardiac: Regular Rhythm and S1/S2; Negative Murmur
GI: Soft, Nontender and Nondistended
Genito-urinary: Cazares (tea colored urine)
Neuro: Awake, Alert, Oriented and No Motor Deficits
Psych: Calm and Intact Judgement/Insight
[2024-04-01 16:00] VITALS: BP 111/57
[2024-04-01] MEDS: COREG 3.125 MG PO (20:40)
[2024-04-01 23:13] VITALS: BP 126/58
[2024-04-02 05:59] VITALS: BMI 18.0
[2024-04-02 07:00] VITALS: BP 108/49
[2024-04-02] MEDS: COREG PO (07:25)
[2024-04-02] MEDS: ELIQUIS 2.5 MG PO (07:30)
[2024-04-02] MEDS: FLOMAX 0.4 PO (07:30)
[2024-04-02] MEDS: LIPITOR 40 MG PO (07:30)
--- NOTE | 2024-04-02 09:10 | CM ---
entered order for dc.
[place] and [facility] [phone] Auth obtained auth #[id number] ref # [id number] from 04/01 to 04/03/24 for [facility] . Clinical faxed to [phone]
Son Kwasi del rosario.
IMM signed yesterday on chart
[facility] [address]
[employer]
report [phone] ext [phone]
fax [phone]
Plan To [facility]
--- NOTE | 2024-04-02 15:53 | W.PN.HOSP.TC ---
Today's Communication/Plan
-
d/c snf rehab
Assessment / Plan
Assessment / Plan
Acute metabolic encephalopathy and CARO on CKD3 due to obstructive uropathy with acute urinary retention likely due to BPH:
-Cazares placed in ER
-Cr 4.2 on admission, now 2.0 after IVFs. Cr was 1.6 on 08/01/18. continues to trend down and 1.9 today
-Flomax started
-Renal US: No hydronephrosis or nephrolithiasis.
-Initially there was a concern for urinary tract infection the patient was on Rocephin. Urine culture contaminated and only had 20,000 colony formation units. Urinary tract infection was ruled out and Rocephin was stopped.
-Appreciate urology input: Given severe bladder distension, recommend maintaining cazares for 7-10 days prior to trial of void. Will arrange as outpatient after discharge.
Hematuria
exacerbated by Eliquis use
-Likely due to obstructive uropathy
Anemia of chronic disease:
-The patient's hemoglobin drop was due to acute blood loss anemia from hematuria as well as hemodilution from IV fluids
-Hb stable
Other problems:
Underweight
Chronic HFrEF s/p BiV ICD: Lasix currently on hold. Cont Coreg.
PAF: resume Eliquis 03/31/24
CAD with h/o stent and CABG with AV repair 12/05/17: cont BB/statin
Essential Hypertension: cont Coreg
Hyperlipidemia: cont statin
GERD: start PPI
h/o Basal cell carcinoma on scalp s/p removal
Full code/SCDs
More than 30 minutes spent in discharge including
Final examination of the patient
Summarizing hospital stay
Instructions for continuing care to all relevant caregivers
Preparation of discharge records, prescriptions, and referral forms
Total time spent (in minutes): 38 mins
Anticipated Discharge: Today
Subjective/Interval History
-
Date of Service: April 02, 2024
No issues overnight
Objective Data
-
Vital Signs:
Vital Signs
Temp Pulse Resp BP Pulse Ox
97.8 F 60 12 108/49 99
04/02/24 07:00 04/02/24 07:00 04/02/24 07:00 04/02/24 07:00 04/02/24 07:00
I&O
04/01/24 04/02/24 04/03/24
06:59 06:59 06:59
Intake Total 300 / 300 840 / 840
Output Total 1250 / 1250 900 / 900
Balance -950 / -950 -60 / -60
== END 2024-04-02 11:39 | DRG 682 ==
LOC: 3 WEST ACU 21:19
PROVIDERS: Internal Medicine; Registered Nurse; Student in an Organized Health Care Education/Training Program; ADMITTING PHYSICIAN Internal Medicine; ATTENDING PHYSICIAN Hospitalist; CONSULT PHYSICIAN Urology; EMERGENCY PHYSICIAN Emergency Medicine; FAMILY PHYSICIAN Internal Medicine
DX: N17.9 Acute kidney failure, unspecified (principal); E43 Unspecified severe protein-calorie malnutrition; G93.41 Metabolic encephalopathy; I13.0 Hypertensive heart and chronic kidney disease with heart failure and stage 1 through stage 4 chronic kidney disease, or unspecified chronic kidney disease; I50.22 Chronic systolic (congestive) heart failure; N13.8 Other obstructive and reflux uropathy; Z68.1 Body mass index [BMI] 19.9 or less, adult; D68.32 Hemorrhagic disorder due to extrinsic circulating anticoagulants; D62 Acute posthemorrhagic anemia; I42.9 Cardiomyopathy, unspecified; R64 Cachexia; I25.10 Atherosclerotic heart disease of native coronary artery without angina pectoris; K21.9 Gastro-esophageal reflux disease without esophagitis; N18.30 Chronic kidney disease, stage 3 unspecified; R31.9 Hematuria, unspecified; N40.1 Benign prostatic hyperplasia with lower urinary tract symptoms; R33.8 Other retention of urine; I48.0 Paroxysmal atrial fibrillation; T45.515A Adverse effect of anticoagulants, initial encounter; E78.00 Pure hypercholesterolemia, unspecified; D63.1 Anemia in chronic kidney disease; Z95.2 Presence of prosthetic heart valve; Z95.810 Presence of automatic (implantable) cardiac defibrillator; Z95.5 Presence of coronary angioplasty implant and graft; Z79.01 Long term (current) use of anticoagulants; Z79.899 Other long term (current) drug therapy; Z95.1 Presence of aortocoronary bypass graft; Z85.828 Personal history of other malignant neoplasm of skin
CPT/HCPCS: 76770; 80048; 80053; 81003; 81015; 82607; 85025; 85027; 85652; 87086; 90677; 93005; 97116; 97163; 97167; 97530; 97535; 99285; G0009

== ENCOUNTER → 2024-10-15 15:06 | Outpatient (REF) | payer MEDICARE, SELFPAY | LOC: RCS 15:06 | PROVIDERS: ATTENDING PHYSICIAN Nurse Practitioner; FAMILY PHYSICIAN Internal Medicine | DX: I10 Essential (primary) hypertension (principal) | CPT/HCPCS: 93306 ==

== ENCOUNTER 2024-11-08 15:18 | Emergency (ER) | payer MEDICARE, SELFPAY ==
[2024-11-08 16:42] VITALS: BP 115/59
--- NOTE | 2024-11-08 16:57 | ED.GENMED ---
History of Present Illness
General
Chief Complaint: Back Pain
Source: patient and family
Exam Limitations: dementia
Time Seen by Provider: 11/08/24 16:09
History of Present Illness
History of Present Illness:
pt is a 89 y/o M [facility]
here with son
h/o AFIB on eliquis, biventricular implant, chf, aortic valve replacement
Past History
Past History
ED Past Medical History: CAD, GERD, HTN, Hypercholesterolemia and Valvular disease; Negative Arrthythmia, Cancer or CVA
ED Past Surgical History: Appendectomy, Cardiac and Orthopedic
Social History
Tobacco: Non-smoker
Alcohol: None
Drug: None
Personal:
Living: alone
Employment: Retired
Course
Orders/Labs/Results
Orders:
Orders
11/08/24 16:57
CR Thoracic Spine 3 Views Urgent
Reason For Exam: back pain
Lumbar Spine Complete, 4 View [CR Lumbar Spine Comp Min 4 Vw*] Urgent
Comment:
Reason For Exam: lower back pain
11/08/24 17:06
Acetaminophen [Tylenol] 650 mg PO NOW STA
11/08/24 17:11
Complete Blood Count/With Diff Urgent
Comprehensive Metabolic Panel Urgent
Abnormal Lab Results
11/08/24
17:11
RBC 3.07 L 10^6/uL
(4.70-6.10)
Hgb 9.8 L g/dL
(13.0-18.0)
Hct 30.3 L %
(39.0-52.0)
MCV 98.7 H fL
(80.0-94.0)
MCH 31.9 H pg
(27.0-31.0)
MCHC 32.3 L g/dL
(33.0-37.0)
Abs Immat Gran (auto) 0.4 H 10^3/uL
(0-0.05)
Absolute Neuts (auto) 7.3 H 10^3/uL
(1.4-6.5)
Immature Gran % 3.6 H %
(0-0.5)
Lymphocytes % 12.3 L %
(20.5-51.1)
Carbon Dioxide 31 H mmol/L
(22-30)
BUN 38 H mg/dl
(9-20)
Creatinine 1.8 H mg/dL
(0.7-1.3)
11/08/24 17:11
11/08/24 17:11
Vital Signs
Initial and Last Documented VS:
Initial Vital Signs
Temp Pulse Resp Pulse Ox
36.6 C 69 18 98
11/08/24 15:34 11/08/24 15:34 11/08/24 15:34 11/08/24 15:34
Last Documented Vital Signs
Temp Pulse Resp BP Pulse Ox
36.6 C 69 18 115/59 98
11/08/24 15:34 11/08/24 15:34 11/08/24 15:34 11/08/24 16:42 11/08/24 15:34
ED Attending Note
-
Portions of this chart may have been created with voice recognition software.� Occasional wrong word or��sound alike� substitutions may have occurred due to the inherent limitations of voice recognition software.
Discharge Plan
Departure
Prescriptions:
No Action
atorvastatin 40 MG tablet
40 mg PO DAILY
furosemide 20 MG tablet
30 mg PO DAILY
Fruit and Vegetable Daily 5-6-150 mg Capsule
1 cap PO DAILY
Eliquis 2.5 mg Tablet
2.5 mg PO BID
carvedilol 3.125 mg Tablet
3.125 mg PO BID Qty: 60 0RF
tamsulosin 0.4 mg Capsule
0.4 mg PO DAILY Qty: 30 2RF
Referrals:
Tucker Nath MD [Family Provider] -
Interventions
Interventions:
*Risk Screen - Suicide Last Done: 11/08/24 15:34
*General Assessment Last Done: 11/08/24 15:34
*Neglect/Abuse Screening Last Done: 11/08/24 15:34
*ED COVID-19 Vaccine History Last Done: 11/08/24 15:34
ED-Musculoskeletal Assessment Last Done: 11/08/24 16:10
Discharge Date and Time
Print Language: ITALIAN
[2024-11-08 17:24] LABS: % Basophils 0.6 % (0-2); % Eosinophils 4.7 % (0-6); % Immature Granulocytes 3.6 % (0-0.5); % Lymphocytes 12.3 % (20.5-51.1); % Neutrophils 72.8 % (42.2-75.2); Absolute Basophils 0.1 10^3/uL (0-0.2); Absolute Eosinophils 0.5 10^3/uL (0-0.7); Absolute Immature Granulocytes 0.4 10^3/uL (0-0.05); Absolute Lymphocytes 1.2 10^3/uL (1.2-3.4); Absolute Monocytes 0.6 10^3/uL (0.1-0.6); Absolute Neutrophils 7.3 10^3/uL (1.4-6.5); Hematocrit 30.3 % (39.0-52.0); Hemoglobin 9.8 g/dL (13.0-18.0); Mean Corp Hgb Conc. 32.3 g/dL (33.0-37.0); Mean Corpuscular Hgb 31.9 pg (27.0-31.0); Mean Corpuscular Volume 98.7 fL (80.0-94.0); Mean Platelet Volume 10.1 fL (7.4-10.4); Nucleated Red Blood Cells % 0 % (-); Platelet Count 189 10^3/uL (130-400); Red Blood Cell Count 3.07 10^6/uL (4.70-6.10); Red Cell Dist. Width 13.9 % (11.5-14.5)
[2024-11-08 17:34] LABS: ALT (SGPT) 13 U/L (0-50); AST (SGOT) 22 U/L (17-59); Albumin 3.6 g/dl (3.5-5.0); Alkaline Phosphatase 123 U/L (38-126); Blood Urea Nitrogen 38 mg/dl (9-20); Calcium 9.3 mg/dl (8.4-10.2); Carbon Dioxide 31 mmol/L (22-30); Chloride 102 mmol/L (98-107); Glucose 96 mg/dl (70-99); Potassium 4.8 mmol/L (3.5-5.1); Sodium 138 mmol/L (135-145); Total Bilirubin 0.6 mg/dl (0.2-1.3); Total Protein 6.9 g/dl (6.3-8.2); eGFR 35.54
[2024-11-08] MEDS: TYLENOL 650 MG PO (18:16)
[2024-11-08] MEDS: DELTASONE 20 MG PO (19:50)
== END 2024-11-08 20:12 | disposition home or self-care (01) ==
LOC: EMR 15:18
PROVIDERS: Physician Assistant; EMERGENCY PHYSICIAN Emergency Medicine; FAMILY PHYSICIAN Internal Medicine
DX: M54.9 Dorsalgia, unspecified (principal); F03.90 Unspecified dementia, unspecified severity, without behavioral disturbance, psychotic disturbance, mood disturbance, and anxiety; I48.91 Unspecified atrial fibrillation; I11.0 Hypertensive heart disease with heart failure; I50.9 Heart failure, unspecified; E78.00 Pure hypercholesterolemia, unspecified; I25.10 Atherosclerotic heart disease of native coronary artery without angina pectoris; K21.9 Gastro-esophageal reflux disease without esophagitis; Z79.01 Long term (current) use of anticoagulants; Z86.73 Personal history of transient ischemic attack (TIA), and cerebral infarction without residual deficits; Z90.49 Acquired absence of other specified parts of digestive tract; Z95.2 Presence of prosthetic heart valve
CPT/HCPCS: 99283; 72072; 72110; 80053; 85025

== ENCOUNTER 2024-11-15 10:44 | Inpatient (IN) | payer MEDICARE, SELFPAY ==
[2024-11-11 14:03] VITALS: BP 123/66
--- NOTE | 2024-11-11 14:32 | ED.GENMED ---
History of Present Illness
General
Chief Complaint: Fall
Source: patient
Exam Limitations: none
Time Seen by Provider: 11/11/24 14:00
Nursing documentation reviewed up to this point in time: agreed with
History of Present Illness
History of Present Illness:
89-year-old male presenting to the emergency department today with concerns of fall in the shower earlier today claims that he did not hit his head but otherwise his back has been continually hurting over the past few weeks. Patient is on Eliquis.
Past History
Past History
ED Past Medical History: CAD, GERD, HTN, Hypercholesterolemia and Valvular disease; Negative Arrthythmia, Cancer or CVA
ED Past Surgical History: Appendectomy, Cardiac and Orthopedic
Social History
Tobacco: Non-smoker
Alcohol: None
Drug: None
Personal:
Living: alone
Employment: Retired
Review of Systems
Review of Systems
Allergies reviewed?: Yes
All Other Systems: ROS reviewed and negative except as documented in HPI and ROS
Phy Exam
Physical Exam
Physical Exam:
GENERAL: Alert , in no apparent distress
EYE: pupils equal and reactive
NECK: Supple, no significant adenopathy.
ENT: o/p clr, mmm.
CARDIAC: Regular rate and rhythm .
LUNGS: Clear breath sounds bilaterally, no acute respiratory distress, no wheezes/rales/rhonchi
ABDOMEN: Soft, without focal tenderness, no r/g, no cvat
NEUROLOGICAL: Alert no focal neuro deficits
SKIN: Warm and dry, skin intact.
MUSCULOSKELETAL: No edema, well perfused.
PSYCH: Normal and appropriate interaction.
Course
Orders/Labs/Results
Orders:
Orders
11/11/24 14:17
CT Head W/o Iv Contrast Urgent
Comment:
Reason For Exam: fall on eliquis
CT Lumbar Spine W/o Iv Contras Urgent
Comment:
Reason For Exam: fall ow back pauin
11/11/24 15:43
Case Management Consult ONCE
Case Management Consult: Discharge Planning
Comment: Pt to see, family concerned with living situation, poor ambulation, fall today, lives at home by
himself. 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
Pt Eval And Treat Urgent
Activity Level: Ambulate
11/11/24 16:02
Acetaminophen [Tylenol] 1,000 mg .ROUTE .STK-MED ONE
11/11/24 16:04
Acetaminophen [Tylenol] 1,000 mg PO NOW STA
11/11/24 17:21
BMP [Basic Metabolic Panel] Urgent
CBC/With Diff [Complete Blood Count/With Diff] Urgent
Vital Signs
Initial and Last Documented VS:
Initial Vital Signs
Pulse Resp Pulse Ox
71 18 98
11/11/24 14:01 11/11/24 14:01 11/11/24 14:01
Last Documented Vital Signs
Temp Pulse Resp BP Pulse Ox
97.7 F 76 16 118/72 98
11/11/24 14:07 11/11/24 17:00 11/11/24 17:00 11/11/24 16:03 11/11/24 15:05
MDM/Problems Addressed
MDM/Problems Addressed:
89-year-old male presenting to the emergency department after a slip and fall in the shower prior to arrival. Did not hit his head has poor many memory of the event due to history of dementia. No visible signs of trauma to the head or neck does
have ongoing back pain. Has been having increased difficulty with ambulation at home. 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 Does live by himself otherwise. Here no symptoms while sitting still but when he tries to move he has back
pain. CT scan of the head and lumbar obtained. No emergent findings found. Does have multiple compression fractures that appear to be chronic as well as multiple disc herniations. Additionally does have a AAA however has not had significant
change from previous imaging 3 years ago. Otherwise at this point PT saw the patient had difficulty ambulating. Plan to admit for case management and PT assessment and monitoring.
*Critical Care Note
Total Time (30-74mins, 75-104mins- exclusive of procedures): Not Applicable
ED Attending Note
-
Portions of this chart may have been created with voice recognition software.� Occasional wrong word or��sound alike� substitutions may have occurred due to the inherent limitations of voice recognition software.
Discharge Plan
Departure
Patient Disposition: Admit
Date of Disposition: 11/11/24
Time of Disposition: 17:26
Admit to: Med/Surg
Admit to doctor: Isray
Presentation/result/management discussed w/ accepting MD/DO: Hospitalist
Patient with high blood pressure during this ER visit?: No
Condition: Good
Covid-19: Not Applicable
Discharge Problem:
Back pain, Ambulatory dysfunction
Prescriptions:
No Action
atorvastatin 40 MG tablet
40 mg PO DAILY
furosemide 20 MG tablet
30 mg PO DAILY
Fruit and Vegetable Daily 5-6-150 mg Capsule
1 cap PO DAILY
Eliquis 2.5 mg Tablet
2.5 mg PO BID
carvedilol 3.125 mg Tablet
3.125 mg PO BID Qty: 60 0RF
tamsulosin 0.4 mg Capsule
0.4 mg PO DAILY Qty: 30 2RF
prednisone 20 mg tablet
20 mg PO DAILY Qty: 5 0RF
lidocaine 5 % adhesive patch,medicated
1 patch topical DAILY PRN (Reason: BACK PAIN) Qty: 15 0RF
Referrals:
Tucker Nath MD [Family Provider] -
Interventions
Interventions:
*Risk Screen - Suicide Last Done: 11/11/24 14:01
*General Assessment Last Done: 11/11/24 14:01
*Neglect/Abuse Screening Last Done: 11/11/24 14:01
*ED COVID-19 Vaccine History Last Done: 11/11/24 14:01
ED-Musculoskeletal Assessment Last Done: 11/11/24 14:01
ED- Neurological Assessment Last Done: 11/11/24 14:01
ED-Skin Assessment Last Done: 11/11/24 14:01
Discharge Date and Time
Print Language: UPPER SORBIAN
[2024-11-11 15:00] VITALS: BP 115/63
[2024-11-11 16:03] VITALS: BP 118/72
[2024-11-11] MEDS: TYLENOL 1000 MG PO (16:04)
--- NOTE | 2024-11-11 16:07 | CM ---
Addendum entered by Fatimah Graham RN 11/11/24 16:50:
CM reviewed PT notes. Patient is unable to tolerate PT at this time. CM will continue to follow.
Original Note:
Cm reviewed medical records. CM was consulted for placement. CM is awaiting PT for evaluation. Patient will need SNF search and insurance authorization.
[2024-11-11 18:11] LABS: % Basophils 0.2 % (0-2); % Immature Granulocytes 3.4 % (0-0.5); % Lymphocytes 4.5 % (20.5-51.1); % Neutrophils 89.9 % (42.2-75.2); Absolute Immature Granulocytes 0.6 10^3/uL (0-0.05); Absolute Lymphocytes 0.9 10^3/uL (1.2-3.4); Absolute Monocytes 0.4 10^3/uL (0.1-0.6); Absolute Neutrophils 16.9 10^3/uL (1.4-6.5); Hematocrit 36.6 % (39.0-52.0); Hemoglobin 11.6 g/dL (13.0-18.0); Mean Corp Hgb Conc. 31.7 g/dL (33.0-37.0); Mean Corpuscular Volume 101.1 fL (80.0-94.0); Mean Platelet Volume 10.4 fL (7.4-10.4); Nucleated Red Blood Cells % 0 % (-); Platelet Count 246 10^3/uL (130-400); Red Blood Cell Count 3.62 10^6/uL (4.70-6.10); Red Cell Dist. Width 13.9 % (11.5-14.5); White Blood Cell Count 18.8 10^3/uL (4.8-10.8)
--- NOTE | 2024-11-11 18:12 | HPS.HSE ---
Family Physician
-
Family Physician: Tucker Nath
Chief Complaint
-
mechanical fall
History of Present Illness
Patient is a 89-year-old male with past medical history significant for essential hypertension, hyperlipidemia, paroxysmal atrial fibrillation, atherosclerotic heart disease and CKD III who presented to [facility] ED for evaluation s/p fall
in the shower. Patient and his son at bedside assisted in HPI. Patient was seen Monday for increased back pain, no acute findings and was discharged back home. Since then patient continues with back pain and difficulty ambulating. Patient today
needed a shower and while showering felt he needed to go to the bathroom, he went to get out and fell forward. Denies hitting his head or any LOC. Workup in ED finds no acute injuries. Patient complaining of lower abdominal discomfort, urine
draining yellow cloudy urine. Patient denies any recent fever, chills, cough, shortness of breath, chest pain, nausea, vomiting, constipation or diarrhea. Patient has a chronic indwelling catheter due for change soon.
Medical History
Past Medical History
Past Medical History: Reports Other
Additional Past Medical History:
essential hypertension
hyperlipidemia
paroxysmal atrial fibrillation
atherosclerotic heart disease
CKD III
chronic anemia
GERD
BPH
aortic stenosis
mitral regurgitation
AAA
Past Surgical History: Reports Other
Additional Past Surgical History:
Appendectomy
Arthroscopy knee(right
sebaceous cyst-sternum surgery
LEFT KNEE SURGERY
STENT 4.0 LAD [employer] BMS 01/07/2009 EF 60%
TONSILLECTOMY
[facility] Cardiac Catherization 11/2017
AVR with a 27mm bovine pericardial tissue valve; and CAB x 1 with a MCKEON to LAD (12/05/17)
Bi V ICD implant 06/18/18
new battery for pacemaker 07/2021
Social History
Tobacco: Former Smoker
Alcohol: None
Drug: None
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
Family History
Family History: Not pertinent
Allergies / Home Medications
Allergies reflects when Allergies were last updated in [employer].
Home Medications with original date entered in [employer]
Allergy/Medication List:
Allergies
Allergy/AdvReac Type Severity Reaction Status Date / Time
milk Allergy Unknown Verified 11/08/24 15:37
Home Medications
atorvastatin 40 mg tablet 40 mg PO DAILY High Cholesterol 10/29/17
furosemide 20 mg tablet 20 mg PO DAILY Fluid Retention/Swelling 08/18/21
apixaban 2.5 mg tablet (Eliquis) 2.5 mg PO BID Blood Clot Prevention/Tx 03/25/24
carvedilol 3.125 mg tablet 3.125 mg PO BID #60 tabs 03/28/24
acetaminophen 500 mg tablet (Tylenol Extra Strength) 1,000 mg PO Q6HPRN PRN back pain 11/11/24
Review of Systems
-
History Source: Patient
Constitutional: Reports No Symptoms
EENT: Reports No Symptoms
Respiratory: Reports No Symptoms
Cardiac: Reports No Symptoms
Abdomen/GI: Reports Abdominal Pain (lower abdomen)
: Reports Cazares
Musculoskeletal: Reports Muscle Pain
Skin: Reports No Symptoms
Neurological: Reports No Symptoms
Endocrine: Reports No Symptoms
Hematologic/Lymphatic: Reports No Symptoms
Psych: Reports No Symptoms
Physical Exam
Vital Signs
Vital Signs
Temp Pulse Resp BP Pulse Ox
97.7 F 76 16 118/72 98
11/11/24 14:07 11/11/24 17:00 11/11/24 17:00 11/11/24 16:03 11/11/24 15:05
Physical Exam
General: Well Developed, Well Nourished, No Apparent Distress, Conversant and Pain
HEENT: NormoCephalic, Moist mucous membranes, Atraumatic, [place] Conjunctivae, Nose Appears Normal and Ears Appear Normal
Respiratory: Clear and Non Labored Respirations
Cardiac: S1/S2, Regular Rhythm and Murmur; No Rub or Gallop
Breast: Deferred by me
GI: Soft, Non Tender, Non Distended and Normal Bowel Sounds; No Organomegaly
Rectal: Deferred by Provider
Genito-urinary: Cazares
Musculoskeletal: No Clubbing, No Cyanosis and No Edema
Skin: Warm and IV/Catheter Site; No Rash
Neuro: Awake, Alert and Nonfocal/grossly intact
Psych: Calm
Laboratory Results
-
11/11/24 18:05
Data Reviewed
-
CT Scan: Report Reviewed by me (Head: No acute intracranial abnormalities. Findings compatible with diffuse cortical atrophy with mild nonspecific white matter changes as described above.; Lumbar: Moderate T12 and L1 vertebral compression fractures
most likely remote, cannot entirely exclude subacute component, without retropulsio)
Lab Data: Labs Reviewed by me (WBC 18.8, BUN 55, Creat 1.6)
Impression/Plan
-
IMPRESSION/PLAN:
#ambulatory dysfunction
#back pain
Head: No acute intracranial abnormalities.
Findings compatible with diffuse cortical atrophy with mild nonspecific white matter changes as described above.
Lumbar CT: Moderate T12 and L1 vertebral compression fractures most likely remote, cannot entirely exclude subacute component, without retropulsion of bony elements.
Marked degenerative disc disease with disc bulges at several levels, as detailed above.
Mild aneurysmal dilatation with marked atherosclerotic changes of the distal abdominal aorta measuring up to 3.3 cm (measured 3.1 cm on prior abdominal aortic ultrasound May 17, 2022). Cannot exclude
small chronic distal abdominal aortic dissection.
- admit to med/surg
- consult PT/OT
- consult case management
- supportive care
#essential hypertension
- continue carvedilol and furosemide
#hyperlipidemia
- continue atorvastatin
#paroxysmal atrial fibrillation
- continue carvedilol and Eliquis
#atherosclerotic heart disease
#aortic stenosis
#mitral regurgitation
ECHO (10/15/2024): Normal left ventricular size, wall thickness and systolic function. No regional wall motion abnormalities are seen. Estimated ejection fraction is 50-55 % visually. Diastolic function normal.
Mitral annular calcification. Prolapse of the posterior mitral leaflet was present. Severe mitral regurgitation. ERO is 32 cm2. Mitral valve regurgitant volume is 56 ml. Probable flow reversal in the left
pulmonary vein.
Moderately dilated left atrium. Indexed LA volume is moderately abnormal (42-48 mL/m2).
Well seated #27 bovine prosthetic valve. Peak/mean gradients across the aortic valve are 10/6 mm Hg. Trace aortic insufficiency.
Tricuspid valve opens normally. Mild to moderate tricuspid regurgitation.
Estimated pulmonary artery pressure of 38 mmHg assuming a right atrial pressure of 8 mmHg.
Since echocardiogram May 2022 which was reviewed, ejection fraction has improved from 30-35% to 50-55%.
- continue atorvastatin
#CKD III
BUN 55, Creat 1.6
- appears to be at baseline
- monitor BMP
#chronic anemia
hgb 11.6, hct 36.6
- stable
- monitor H/H
#BPH
chronic cazares in place for retention
due for change in next week or two
#AAA
stable since 2021
#GERD
Code status: DNR
DVT prophylaxis: Eliquis
[2024-11-11 18:25] LABS: Blood Urea Nitrogen 55 mg/dl (9-20); Carbon Dioxide 26 mmol/L (22-30); Chloride 97 mmol/L (98-107); Glucose 201 mg/dl (70-99); Potassium 4.7 mmol/L (3.5-5.1); Sodium 136 mmol/L (135-145); eGFR 40.93
[2024-11-11] MEDS: TORADOL 15 MG IV (19:25)
--- NOTE | 2024-11-11 20:04 | W.PN.UPDATE ---
Update Note
Progress Note Update
I could not get any information from the patient has dementia
Information gathered by chart review and speaking with the ER staff and son
This note serves as an addendum to the H&P by travel rn or TYSON
Wilma Musa
HPI
89M with chronic indwelling catheter due for change soon. HX Prx AF, chr Eliquis, CKD3b, chr HFrEF, seen at ER:
- evaluation s/p fall in the showe
- he was seen Monday for increased back pain, no acute findings and was discharged back home.
- Since then patient continues with back pain and difficulty ambulating.
- while showering felt he needed to go to the bathroom, he went to get out and fell forward.
- denies hitting his head or any LOC.
- NEG HCT
- report lower abdominal discomfort, urine draining yellow cloudy urine.
- chronic indwelling catheter due for change soon.
ROS
denies any recent fever, chills, cough, shortness of breath, chest pain, nausea, vomiting, constipation or diarrhea.
PHX; see above
VS
11/11/24
14:01 11/11/24
14:03 11/11/24
14:07
Temp 97.7 F
Temp route: Rectal
Pulse 70
Resp Rate 20
Blood pressure 123/66
SaO2 98
Oxygen Mode of Delivery Room air
11/08/24 11/11/24
17:11 18:05
WBC 10.0 18.8 H
Hgb 9.8 L 11.6 L
MCV 101.1 H
Plt Count 246 D
Chloride 97 L
BUN 55 H
Creatinine 1.8 H 1.6 H
eGFR 35.54 40.93
[address] Head W/o Iv Contrast
No acute intracranial abnormalities.
Findings compatible with diffuse cortical atrophy with mild nonspecific white matter changes as described above.
CT Lumbar Spine W/o Iv Contras
- Moderate T12 and L1 vertebral compression fractures most likely remote, cannot entirely exclude subacute component, without retropulsion of bony elements.
- Marked degenerative disc disease with disc bulges at several levels, as detailed above.
- Mild aneurysmal dilatation with marked atherosclerotic changes of the distal abdominal aorta measuring up to 3.3 cm (measured 3.1 cm on prior abdominal aortic ultrasound May 17, 2022). Cannot exclude small chronic distal abdominal aortic
dissection.
10/15/2024 ECHO
LVEF s 50-55 %
Nl Diastolic function normal.
Severe MR
Moderately dilated left atrium.
Well seated #27 bovine prosthetic valve. Peak/mean gradients across the aortic valve are 10/6 mm Hg. Trace aortic insufficiency.
Mild to moderate tricuspid regurgitation.
Estimated pulmonary artery pressure of 38 mmHg assuming a right atrial pressure of 8 mmHg.
Since echocardiogram May 2022 which was reviewed, ejection fraction has improved from 30-35% to 50-55%.
Last hospitalist admission:
Date of Admission: 03/25/24 -Date of Discharge: 04/02/24
Principal Discharge diagnosis :
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
Hematuria exacerbated by Eliquis use
Urinary retention
Chronic Discharge diagnosis :
Anemia of chronic disease
Chronic systolic congestive heart failure with history of biventricular ICD
Paroxysmal atrial fibrillation
Coronary disease with history of stent and bypass
Essential hypertension
Hyperlipidemia
Gastroesophageal reflux disease
History of basal cell carcinoma on scalp
ASSESSMENT & PLAN
Fall without injury: NEG HCT
Ambulatory dysfunction
Intractable back pain
Recent Lx spine CT with suggest remote T12 and L1 vertebral compression fractures
NEG HCT; compatible with diffuse cortical atrophy with mild nonspecific white matter changes as described above.
- PT/OT
- Analgesia PRN
- supportive care
- PT/OT/CRM consult
Essential hypertension
- on BRAZER CONTROLLED ATMOSPHERIC FURNACE carvedilol and furosemide
Hyperlipidemia
- on atorvastatin
Prx AF
- c/w carvedilol and Eliquis
HX HF recovered EF
HX chr HFrEF
HX biventricular ICD
- stable
- c/w Carvedilol and PO Lasix
Valvular heart dz
Severe MR
Moderately dilated left atrium.
Well seated #27 bovine AoV prosthetic valve.
Mild to moderate tricuspid regurgitation.
HX CKD 3b II
BUN 55, Creat 1.6
- appears to be at baseline
- monitor BMP
Chronic anemia
hgb 11.6,HCT 36.6
- stable
- monitor H/H
BPH
Neurogenic bladder ?
- on chronic cazares in place for retention
- due for change in next week or two
- check UA
AAA
- stable since 2021
DVT Px: chr Eliquis
DNR
Obs MS
[2024-11-11 20:31] VITALS: BP 85/45
[2024-11-11] MEDS: COREG PO (22:01)
[2024-11-11] MEDS: ELIQUIS 2.5 MG PO (22:01)
[2024-11-11 23:29] VITALS: BP 109/54
--- NOTE | 2024-11-12 03:10 | PTCARENOTE ---
Pt. arrived to unit from ED via stretcher. Pt. pulled over from stretcher to bed with staff assist. Pt. AAOx1, to self only. Able to make needs known. Pfeiffer catheter in place. Pfeiffer leg bag exchanged for drainage bag. Bed alarm placed. Call shipman
within reach. Plan of care ongoing.
[2024-11-12 07:05] VITALS: BP 106/59
[2024-11-12 07:53] LABS: Blood Urea Nitrogen 58 mg/dl (9-20); Calcium 9.4 mg/dl (8.4-10.2); Carbon Dioxide 29 mmol/L (22-30); Chloride 100 mmol/L (98-107); Estimated Creatinine Clearance 20 ml/min; Glucose 90 mg/dl (70-99); Potassium 4.6 mmol/L (3.5-5.1); Sodium 138 mmol/L (135-145); eGFR 31.31
[2024-11-12] MEDS: LASIX 20 MG PO (07:54)
[2024-11-12] MEDS: LIPITOR 40 MG PO (07:55)
[2024-11-12] MEDS: ELIQUIS 2.5 MG PO ×2 (07:55→20:17)
[2024-11-12] MEDS: COREG 3.125 MG PO ×2 (07:55→20:17)
[2024-11-12 07:58] LABS: Hematocrit 29.1 % (39.0-52.0); Hemoglobin 9.4 g/dL (13.0-18.0); Mean Corp Hgb Conc. 32.3 g/dL (33.0-37.0); Mean Corpuscular Hgb 31.5 pg (27.0-31.0); Mean Corpuscular Volume 97.7 fL (80.0-94.0); Mean Platelet Volume 10.1 fL (7.4-10.4); Platelet Count 206 10^3/uL (130-400); Red Blood Cell Count 2.98 10^6/uL (4.70-6.10); Red Cell Dist. Width 13.9 % (11.5-14.5)
[2024-11-12] MEDS: TYLENOL 650 MG PO (07:58)
[2024-11-12 09:56] LABS: Urine Albumin 2+ (Neg - Trace); Urine Bilirubin Negative (Negative); Urine Character Clear (Clear); Urine Color Yellow; Urine Glucose Negative (Negative); Urine Ketone Negative (Negative); Urine Leukocyte 3+ (Negative); Urine Nitrite Positive (Negative); Urine Occult Blood 4+ (Negative); Urine Specific Gravity 1.015 (<1.030); Urine Urobilinogen Negative (Neg - 1+)
[2024-11-12 10:22] LABS: Urine Mucus Few
[2024-11-12 10:23] LABS: Urine Bacteria Moderate (Negative); Urine Red Blood Cell 50-60 /HPF (0-2); Urine White Cell 16-20 /HPF (0-5)
[2024-11-12] MEDS: MORPHINE SULFATE 1 MG IV (10:51)
--- NOTE | 2024-11-12 10:55 | W.PN.HOSP.TC ---
Addendum entered and electronically signed by Cookie Patrick MD 11/12/24 11:02:
addendum
Hypotension noted on admission, likely secondary to medication with low oral intake. Holding Lasix for now.
End
Original Note:
Today's Communication/Plan
-
Checking urine and culture
Order ATC Tylenol
PRN Tramadol for pain
Assessment / Plan
Assessment / Plan
Physical Exam
General: cachexia, No Apparent Distress, Conversant and denies Pain
HEENT: Normocephalic, Moist mucous membranes, Atraumatic, [place] Conjunctivae, Nose Appears Normal and Ears Appear Normal
Respiratory: Clear
Cardiac: S1/S2,
GI: Soft, Non Tender, Non Distended
Rectal: No bleeding
Genito-urinary: Pfeiffer, no hematuria.
Musculoskeletal: No Clubbing, No Cyanosis and No Edema
Skin: Warm. No Rash
Neuro: Awake, Alert, oriented to self and surroundings, forgetful?, he followed commands.
Psych: Calm
#History of gait dysfunction/ acute on chronic back pain
Head: No acute intracranial abnormalities.
Findings compatible with diffuse cortical atrophy with mild nonspecific white matter changes as described above.
Lumbar CT: Moderate T12 and L1 vertebral compression fractures most likely remote, cannot entirely exclude subacute component, without retropulsion of bony elements.
Marked degenerative disc disease with disc bulges at several levels, as detailed above.
Mild aneurysmal dilatation with marked atherosclerotic changes of the distal abdominal aorta measuring up to 3.3 cm (measured 3.1 cm on prior abdominal aortic ultrasound May 17, 2022). Cannot exclude
small chronic distal abdominal aortic dissection.
Order Tylenol BID
Add low dose Tramadol for severe pain
#essential hypertension
- continue carvedilol and furosemide
#hyperlipidemia
- continue atorvastatin
#paroxysmal atrial fibrillation
- continue carvedilol and Eliquis
#atherosclerotic heart disease
#aortic stenosis
#mitral regurgitation
ECHO (10/15/2024): Normal left ventricular size, wall thickness and systolic function. No regional wall motion abnormalities are seen. Estimated ejection fraction is 50-55 % visually. Diastolic function normal.
Mitral annular calcification. Prolapse of the posterior mitral leaflet was present. Severe mitral regurgitation. ERO is 32 cm2. Mitral valve regurgitant volume is 56 ml. Probable flow reversal in the left
pulmonary vein.
Moderately dilated left atrium. Indexed LA volume is moderately abnormal (42-48 mL/m2).
Well seated #27 bovine prosthetic valve. Peak/mean gradients across the aortic valve are 10/6 mm Hg. Trace aortic insufficiency.
Tricuspid valve opens normally. Mild to moderate tricuspid regurgitation.
Estimated pulmonary artery pressure of 38 mmHg assuming a right atrial pressure of 8 mmHg.
Since echocardiogram May 2022 which was reviewed, ejection fraction has improved from 30-35% to 50-55%.
- continue atorvastatin
#CKD IIIb
No renal colic
No hematuria
Order urine test
# Leukocytosis, could be reactive
No fever
No hypoxia
Check urine test/ culture
#chronic anemia
hgb 11.6, hct 36.6
- stable
- monitor H/H
#BPH
chronic Pfeiffer in place for retention
due for change in next week or two
#AAA
stable since 2021
#GERD
Code status: DNR
DVT prophylaxis: Eliquis
Total time spent to see the patient, examine the patient, review data and lab results, discuss treatment plan with patient, son and nursing staff around 55 minutes
Anticipated Discharge: 24 - 48 hours
Subjective/Interval History
-
Date of Service: November 12, 2024
Denies back pain, no chest pain
Objective Data
-
Labs:
Laboratory Results
11/12/24
06:44
WBC 13.0 H
Hgb 9.4 L
Hct 29.1 L
Plt Count 206
Sodium 138
Potassium 4.6
Chloride 100
Carbon Dioxide 29
BUN 58 H
Creatinine 2.0 H
Glucose 90
Calcium 9.4
Vital Signs:
Vital Signs
Temp Pulse Resp BP Pulse Ox
97.5 F 71 18 106/59 98
11/12/24 07:05 11/12/24 07:05 11/12/24 07:05 11/12/24 07:05 11/12/24 07:05
I&O
11/11/24 11/12/24 11/13/24
06:59 06:59 06:59
Output Total 400 / 400
Balance -400 / -400
[2024-11-12 11:20] VITALS: BP 113/63; PULSE 71; O2SAT 98
[2024-11-12 11:31] VITALS: BP 113/63; PULSE 70; O2SAT 98
[2024-11-12 15:03] VITALS: BP 107/63
[2024-11-12] MEDS: TYLENOL 1000 MG PO (20:17)
[2024-11-12 23:00] VITALS: BP 109/56
[2024-11-13] MEDS: ULTRAM 25 MG PO (01:48)
[2024-11-13 06:52] LABS: Hematocrit 30.4 % (39.0-52.0); Hemoglobin 10.1 g/dL (13.0-18.0); Mean Corp Hgb Conc. 33.2 g/dL (33.0-37.0); Mean Corpuscular Hgb 33.2 pg (27.0-31.0); Mean Platelet Volume 10.3 fL (7.4-10.4); Platelet Count 189 10^3/uL (130-400); Red Blood Cell Count 3.04 10^6/uL (4.70-6.10); Red Cell Dist. Width 13.9 % (11.5-14.5); White Blood Cell Count 15.7 10^3/uL (4.8-10.8)
[2024-11-13 07:12] LABS: Blood Urea Nitrogen 54 mg/dl (9-20); Calcium 9.2 mg/dl (8.4-10.2); Carbon Dioxide 31 mmol/L (22-30); Chloride 100 mmol/L (98-107); Estimated Creatinine Clearance 23 ml/min; Glucose 82 mg/dl (70-99); Potassium 4.3 mmol/L (3.5-5.1); Sodium 136 mmol/L (135-145); eGFR 38.06
[2024-11-13 07:30] VITALS: BP 122/59
[2024-11-13] MEDS: COREG 3.125 MG PO ×2 (08:45→21:12)
[2024-11-13] MEDS: LIPITOR 40 MG PO (08:45)
[2024-11-13] MEDS: ELIQUIS 2.5 MG PO ×2 (08:45→21:11)
[2024-11-13] MEDS: TYLENOL 1000 MG PO ×2 (08:46→21:11)
[2024-11-13 11:00] VITALS: BMI 16.1
--- NOTE | 2024-11-13 11:08 | W.PN.HOSP.TC ---
Today's Communication/Plan
-
Will reach out to case assistant to discuss DC plan with sob
f/w urine culture/ blood culture
Assessment / Plan
Assessment / Plan
Physical Exam
General: cachexia, No Apparent Distress, Conversant and denies Pain
HEENT: Normocephalic, Moist mucous membranes, Atraumatic, [place] Conjunctivae, Nose Appears Normal and Ears Appear Normal
Respiratory: Clear
Cardiac: S1/S2,
GI: Soft, Non Tender, Non Distended
Rectal: No bleeding
Genito-urinary: Pfeiffer, no hematuria.
Musculoskeletal: No Clubbing, No Cyanosis and No Edema
Skin: Warm. No Rash
Neuro: Awake, Alert, oriented to self and surroundings, forgetful?, he followed commands.
Psych: Calm
#History of gait dysfunction/ acute on chronic back pain
Head: No acute intracranial abnormalities.
Findings compatible with diffuse cortical atrophy with mild nonspecific white matter changes as described above.
Lumbar CT: Moderate T12 and L1 vertebral compression fractures most likely remote, cannot entirely exclude subacute component, without retropulsion of bony elements.
Marked degenerative disc disease with disc bulges at several levels, as detailed above.
Mild aneurysmal dilatation with marked atherosclerotic changes of the distal abdominal aorta measuring up to 3.3 cm (measured 3.1 cm on prior abdominal aortic ultrasound May 17, 2022). Cannot exclude
small chronic distal abdominal aortic dissection.
Order Tylenol BID
Added low dose Tramadol for severe pain
#essential hypertension
- continue carvedilol and furosemide
#hyperlipidemia
- continue atorvastatin
#paroxysmal atrial fibrillation
- continue carvedilol and Eliquis
#atherosclerotic heart disease
#aortic stenosis
#mitral regurgitation
ECHO (10/15/2024): Normal left ventricular size, wall thickness and systolic function. No regional wall motion abnormalities are seen. Estimated ejection fraction is 50-55 % visually. Diastolic function normal.
Mitral annular calcification. Prolapse of the posterior mitral leaflet was present. Severe mitral regurgitation. ERO is 32 cm2. Mitral valve regurgitant volume is 56 ml. Probable flow reversal in the left
pulmonary vein.
Moderately dilated left atrium. Indexed LA volume is moderately abnormal (42-48 mL/m2).
Well seated #27 bovine prosthetic valve. Peak/mean gradients across the aortic valve are 10/6 mm Hg. Trace aortic insufficiency.
Tricuspid valve opens normally. Mild to moderate tricuspid regurgitation.
Estimated pulmonary artery pressure of 38 mmHg assuming a right atrial pressure of 8 mmHg.
Since echocardiogram May 2022 which was reviewed, ejection fraction has improved from 30-35% to 50-55%.
- continue atorvastatin
#CKD IIIb
No renal colic
No hematuria
Urine is positive for occult blood/RBC/WBC
# Leukocytosis, could be reactive
No fever
No hypoxia
urine test is positive for bacteria, urine nitrite/WBC and RBC await urine culture,
Will order blood culture
#chronic anemia
hgb 11.6, hct 36.6
- stable
#BPH
chronic Pfeiffer in place for retention
due for change in next week or two
#AAA
stable since 2021
#GERD
Code status: DNR
DVT prophylaxis: Eliquis
Spoke with sob at [facility], pt will likely need SNF
Total time spent to see the patient, examine the patient, review data and lab results, discuss treatment plan with patient, son and nursing staff around 55 minutes
Anticipated Discharge: Within 24 hours
Subjective/Interval History
-
Date of Service: November 13, 2024
No chest pain
No sob
Objective Data
-
Labs:
Laboratory Results
11/13/24
06:23
WBC 15.7 H
Hgb 10.1 L
Hct 30.4 L
Plt Count 189
Sodium 136
Potassium 4.3
Chloride 100
Carbon Dioxide 31 H
BUN 54 H
Creatinine 1.7 H
Glucose 82
Calcium 9.2
Vital Signs:
Vital Signs
Temp Pulse Resp BP Pulse Ox
97.5 F 71 18 122/59 99
11/13/24 07:30 11/13/24 07:30 11/13/24 07:30 11/13/24 07:30 11/13/24 07:30
I&O
11/12/24 11/13/24 11/14/24
06:59 06:59 06:59
Intake Total 840 / 840
Output Total 400 / 400 875 / 875
Balance -400 / -400 -35 / -35
--- NOTE | 2024-11-13 13:31 | PTCARENOTE ---
patient forgetful, denies pain, tolerating diet, turns self in bed, vss, will continue to monitor.
--- NOTE | 2024-11-13 15:23 | CM ---
Spoke with attending who stated that patient will need SNF. Patient may be 30 day exception. Attending writing addendum. Will discuss with patient/family about SNF options.
Plan: Case management will continue to follow and assist with discharge planning. SNF then [facility].
[2024-11-13 16:00] VITALS: BP 102/50
--- NOTE | 2024-11-13 18:12 | CM ---
Received call from patient's son, Stevie. Placed return call. He stated that he would like for patient to transfer to [facility]. Explanation was provided that indication is for skilled, however referral can be sent. He stated that he will explore
facilities and get back to in the am to discuss where he would like referrals sent.
Plan: Case management will continue to follow and assist with discharge planning. SNF when stable.
[2024-11-13 23:20] VITALS: BP 98/52
[2024-11-14 07:15] VITALS: BP 121/58
[2024-11-14] MEDS: COREG 3.125 MG PO ×2 (07:54→20:57)
[2024-11-14] MEDS: ELIQUIS 2.5 MG PO ×2 (07:57→20:57)
[2024-11-14] MEDS: LIPITOR 40 MG PO (07:58)
[2024-11-14] MEDS: TYLENOL 1000 MG PO ×2 (07:58→20:57)
--- NOTE | 2024-11-14 08:43 | W.PN.HOSP.TC ---
Today's Communication/Plan
-
continue to control back pain, use Tylenol & Tramadol
Will reach out to [facility] about urine culture
Order CBC
Assessment / Plan
Assessment / Plan
Physical Exam
General: cachexia, No Apparent Distress, Conversant and denies Pain
HEENT: Normocephalic, Moist mucous membranes, Atraumatic, [place] Conjunctivae, Nose Appears Normal and Ears Appear Normal
Respiratory: Clear
Cardiac: S1/S2,
GI: Soft, Non Tender, Non Distended
Rectal: No bleeding
Genito-urinary: Pfeiffer, no hematuria.
Musculoskeletal: No Clubbing, No Cyanosis and No Edema
Skin: Warm. No Rash
Neuro: Awake, Alert, oriented to self and surroundings, forgetful?, he followed commands.
Psych: Calm
#History of gait dysfunction/ acute on chronic back pain
Head: No acute intracranial abnormalities.
Findings compatible with diffuse cortical atrophy with mild nonspecific white matter changes as described above.
Lumbar CT: Moderate T12 and L1 vertebral compression fractures most likely remote, cannot entirely exclude subacute component, without retropulsion of bony elements.
Marked degenerative disc disease with disc bulges at several levels, as detailed above.
Mild aneurysmal dilatation with marked atherosclerotic changes of the distal abdominal aorta measuring up to 3.3 cm (measured 3.1 cm on prior abdominal aortic ultrasound May 17, 2022). Cannot exclude
small chronic distal abdominal aortic dissection.
Order Tylenol BID
Added low dose Tramadol for severe pain
#essential hypertension
- continue carvedilol and furosemide
#hyperlipidemia
- continue atorvastatin
#paroxysmal atrial fibrillation
- continue carvedilol and Eliquis
#atherosclerotic heart disease
#aortic stenosis
#mitral regurgitation
ECHO (10/15/2024): Normal left ventricular size, wall thickness and systolic function. No regional wall motion abnormalities are seen. Estimated ejection fraction is 50-55 % visually. Diastolic function normal.
Mitral annular calcification. Prolapse of the posterior mitral leaflet was present. Severe mitral regurgitation. ERO is 32 cm2. Mitral valve regurgitant volume is 56 ml. Probable flow reversal in the left
pulmonary vein.
Moderately dilated left atrium. Indexed LA volume is moderately abnormal (42-48 mL/m2).
Well seated #27 bovine prosthetic valve. Peak/mean gradients across the aortic valve are 10/6 mm Hg. Trace aortic insufficiency.
Tricuspid valve opens normally. Mild to moderate tricuspid regurgitation.
Estimated pulmonary artery pressure of 38 mmHg assuming a right atrial pressure of 8 mmHg.
Since echocardiogram May 2022 which was reviewed, ejection fraction has improved from 30-35% to 50-55%.
- continue atorvastatin
#CKD IIIb
No renal colic
No hematuria
Urine is positive for occult blood/RBC/WBC
# Leukocytosis, could be reactive
No fever
No hypoxia
urine test is positive for bacteria, urine nitrite/WBC and RBC await urine culture,
Will order blood culture
#chronic anemia
hgb 11.6, hct 36.6
- stable
#BPH
chronic Pfeiffer in place for retention
due for change in next week or two
#AAA
stable since 2021
#GERD
Code status: DNR
DVT prophylaxis: Eliquis
Total time spent to see the patient, examine the patient, review data and lab results, discuss treatment plan with patient, son and nursing staff around 55 minutes
Anticipated Discharge: Within 24 hours
Subjective/Interval History
-
Date of Service: November 14, 2024
No chest pain
No sob
Objective Data
-
Vital Signs:
Vital Signs
Temp Pulse Resp BP Pulse Ox
96.5 F L 71 18 121/58 97
11/14/24 07:15 11/14/24 07:15 11/14/24 07:15 11/14/24 07:15 11/14/24 07:15
I&O
11/13/24 11/14/24 11/15/24
06:59 06:59 06:59
Intake Total 840 / 840 720 / 720
Output Total 875 / 875 400 / 400
Balance -35 / -35 320 / 320
--- NOTE | 2024-11-14 09:05 | CM ---
Addendum entered by Guera Coburn 11/14/24 12:45:
Per [facility], patient does not have an acute rehab diagnosis. Call to patients son, agreeable to referral to [facility], will set up caregiver services for the weekend, does not want SNF. CM will continue to follow for all discharge planning needs.
Plan; home with caregiver services and [facility]
Original Note:
CM spoke with patients son, Stevie, to discuss PT recommendations. Son requesting referral to [facility]. CM explained PT recommendations of SNF, patient will require acute rehab diagnosis to qualify, son understands and still requesting referral to
[facility], referral placed, TT to [place] liaison. Son reports second choice would be for patient to return home with [facility] as patient had [facility] in past, patient also has [facility] 8-2/4 p.m. daily. CM will continue to follow for all discharge
planning needs.
Plan; [facility] referral versus home with services.
[2024-11-14 10:18] LABS: Hematocrit 32.4 % (39.0-52.0); Hemoglobin 10.4 g/dL (13.0-18.0); Mean Corp Hgb Conc. 32.1 g/dL (33.0-37.0); Mean Corpuscular Hgb 32.5 pg (27.0-31.0); Mean Corpuscular Volume 101.3 fL (80.0-94.0); Mean Platelet Volume 10.7 fL (7.4-10.4); Platelet Count 205 10^3/uL (130-400); Red Cell Dist. Width 13.9 % (11.5-14.5); White Blood Cell Count 12.9 10^3/uL (4.8-10.8)
[2024-11-14 11:51] VITALS: BP 115/54
[2024-11-14 15:40] VITALS: BP 143/70
[2024-11-14 23:13] VITALS: BP 105/49
[2024-11-15 06:35] LABS: Hematocrit 30.4 % (39.0-52.0); Hemoglobin 9.8 g/dL (13.0-18.0); Mean Corp Hgb Conc. 32.2 g/dL (33.0-37.0); Mean Corpuscular Hgb 32.1 pg (27.0-31.0); Mean Corpuscular Volume 99.7 fL (80.0-94.0); Mean Platelet Volume 10.4 fL (7.4-10.4); Platelet Count 185 10^3/uL (130-400); Red Blood Cell Count 3.05 10^6/uL (4.70-6.10); White Blood Cell Count 12.5 10^3/uL (4.8-10.8)
[2024-11-15 07:05] VITALS: BP 116/58
[2024-11-15 07:06] LABS: ALT (SGPT) 15 U/L (0-50); AST (SGOT) 29 U/L (17-59); Albumin 3.5 g/dl (3.5-5.0); Alkaline Phosphatase 133 U/L (38-126); Blood Urea Nitrogen 38 mg/dl (9-20); Calcium 9.2 mg/dl (8.4-10.2); Carbon Dioxide 33 mmol/L (22-30); Chloride 99 mmol/L (98-107); Estimated Creatinine Clearance 23 ml/min; Glucose 89 mg/dl (70-99); Potassium 4.6 mmol/L (3.5-5.1); Sodium 138 mmol/L (135-145); Total Bilirubin 0.5 mg/dl (0.2-1.3); Total Protein 6.3 g/dl (6.3-8.2); eGFR 40.93
[2024-11-15] MEDS: ELIQUIS 2.5 MG PO ×2 (07:27→19:49)
[2024-11-15] MEDS: LIPITOR 40 MG PO (07:27)
[2024-11-15] MEDS: TYLENOL 1000 MG PO ×2 (07:27→19:49)
[2024-11-15] MEDS: COREG 3.125 MG PO ×2 (07:28→19:49)
--- NOTE | 2024-11-15 11:01 | W.PN.HOSP.TC ---
Today's Communication/Plan
-
Back pain is not better
will do MRI studies
check ESR & CRP
Not ready for discharge
Assessment / Plan
Assessment / Plan
Physical Exam
General: cachexia, No Apparent Distress, Conversant and denies Pain
HEENT: Normocephalic, Moist mucous membranes, Atraumatic, [place] Conjunctivae, Nose Appears Normal and Ears Appear Normal
Respiratory: Clear
Cardiac: S1/S2,
GI: Soft, Non Tender, Non Distended
Rectal: No bleeding
Genito-urinary: Pfeiffer, no hematuria.
Musculoskeletal: No Clubbing, No Cyanosis and No Edema
Skin: Warm. No Rash
Neuro: Awake, Alert, oriented to self and surroundings, forgetful?, he followed commands.
Psych: Calm
#History of gait dysfunction/ acute on chronic back pain
Pain is not better, will do MRI studies
Will also order ESR & CRP
negative blood culture
Head: No acute intracranial abnormalities.
Findings compatible with diffuse cortical atrophy with mild nonspecific white matter changes as described above.
Lumbar CT: Moderate T12 and L1 vertebral compression fractures most likely remote, cannot entirely exclude subacute component, without retropulsion of bony elements.
Marked degenerative disc disease with disc bulges at several levels, as detailed above.
Mild aneurysmal dilatation with marked atherosclerotic changes of the distal abdominal aorta measuring up to 3.3 cm (measured 3.1 cm on prior abdominal aortic ultrasound May 17, 2022). Cannot exclude
small chronic distal abdominal aortic dissection.
c/w Tylenol BID
Added low dose Tramadol for severe pain
#essential hypertension
- continue carvedilol and furosemide
#hyperlipidemia
- continue atorvastatin
#paroxysmal atrial fibrillation
- continue carvedilol and Eliquis
#atherosclerotic heart disease
#aortic stenosis
#mitral regurgitation
ECHO (10/15/2024): Normal left ventricular size, wall thickness and systolic function. No regional wall motion abnormalities are seen. Estimated ejection fraction is 50-55 % visually. Diastolic function normal.
Mitral annular calcification. Prolapse of the posterior mitral leaflet was present. Severe mitral regurgitation. ERO is 32 cm2. Mitral valve regurgitant volume is 56 ml. Probable flow reversal in the left
pulmonary vein.
Moderately dilated left atrium. Indexed LA volume is moderately abnormal (42-48 mL/m2).
Well seated #27 bovine prosthetic valve. Peak/mean gradients across the aortic valve are 10/6 mm Hg. Trace aortic insufficiency.
Tricuspid valve opens normally. Mild to moderate tricuspid regurgitation.
Estimated pulmonary artery pressure of 38 mmHg assuming a right atrial pressure of 8 mmHg.
Since echocardiogram May 2022 which was reviewed, ejection fraction has improved from 30-35% to 50-55%.
- continue atorvastatin
#CKD IIIb
No renal colic
No hematuria
Urine is positive for occult blood/RBC/WBC
# Leukocytosis,
No fever
No hypoxia
urine test is positive for, will do ampicillin
#chronic anemia
hgb 11.6, hct 36.6
- stable
#BPH
chronic Pfeiffer in place for retention
due for change in next week or two
#AAA
stable since 2021
#GERD
Code status: DNR
DVT prophylaxis: Eliquis
Total time spent to see the patient, examine the patient, review data and lab results, discuss treatment plan with patient, son and nursing staff around 55 minutes
Anticipated Discharge: > 48 hours
Subjective/Interval History
-
Date of Service: November 15, 2024
No chest pain
No sob
still same back pain
Objective Data
-
Labs:
Laboratory Results
11/15/24
06:04
WBC 12.5 H
Hgb 9.8 L
Hct 30.4 L
Plt Count 185
Sodium 138
Potassium 4.6
Chloride 99
Carbon Dioxide 33 H
BUN 38 H
Creatinine 1.6 H
Glucose 89
Calcium 9.2
Total Bilirubin 0.5
AST 29
ALT 15
Alkaline Phosphatase 133 H
Vital Signs:
Vital Signs
Temp Pulse Resp BP Pulse Ox
97.5 F 70 17 134/58 99
11/15/24 07:05 11/15/24 07:28 11/15/24 07:05 11/15/24 07:28 11/15/24 09:30
I&O
11/14/24 11/15/24 11/16/24
06:59 06:59 06:59
Intake Total 720 / 720 960 / 960 240 / 240
Output Total 400 / 400 1300 / 1300 850 / 850
Balance 320 / 320 -340 / -340 -610 / -610
--- NOTE | 2024-11-15 12:45 | CM ---
Received call from patient's son, Stevie, who stated that he feels that patient may actually benefit from SNF, given the length of time he has been in bed and based off of last PT indications. Patient and his son lives in [place], therefore,
they would like for all referrals to be sent to local SNFs: [facility], [facility], [facility], [facility], [facility]. Will make referrals.
Plan: Case management will continue to follow and assist with discharge planning. SNF when stable.
[2024-11-15 13:23] LABS: Erythrocyte Sed Rate 61 mm/hour (0-20)
[2024-11-15 15:05] VITALS: BP 120/62
[2024-11-15 15:45] VITALS: BP 122/50; PULSE 71
[2024-11-15] MEDS: ULTRAM 25 MG PO (18:04)
[2024-11-15 23:34] VITALS: BP 123/54
[2024-11-16 05:36] VITALS: BMI 16.2
[2024-11-16 07:00] VITALS: BP 110/58
[2024-11-16] MEDS: LIPITOR 40 MG PO (08:34)
[2024-11-16] MEDS: ELIQUIS 2.5 MG PO ×2 (08:34→21:34)
[2024-11-16] MEDS: AMOXIL 500 MG PO ×2 (08:34→21:34)
[2024-11-16] MEDS: COREG 3.125 MG PO ×2 (08:34→21:34)
[2024-11-16] MEDS: TYLENOL 1000 MG PO ×2 (08:34→21:34)
[2024-11-16 09:02] LABS: Hematocrit 30.4 % (39.0-52.0); Hemoglobin 9.7 g/dL (13.0-18.0); Mean Corp Hgb Conc. 31.9 g/dL (33.0-37.0); Mean Corpuscular Hgb 31.8 pg (27.0-31.0); Mean Corpuscular Volume 99.7 fL (80.0-94.0); Mean Platelet Volume 10.5 fL (7.4-10.4); Platelet Count 185 10^3/uL (130-400); Red Blood Cell Count 3.05 10^6/uL (4.70-6.10); Red Cell Dist. Width 14.3 % (11.5-14.5); White Blood Cell Count 11.6 10^3/uL (4.8-10.8)
[2024-11-16 09:47] LABS: Blood Urea Nitrogen 40 mg/dl (9-20); Calcium 9.1 mg/dl (8.4-10.2); Carbon Dioxide 32 mmol/L (22-30); Chloride 98 mmol/L (98-107); Estimated Creatinine Clearance 27 ml/min; Glucose 83 mg/dl (70-99); Potassium 4.4 mmol/L (3.5-5.1); Sodium 137 mmol/L (135-145); eGFR 48.04
--- NOTE | 2024-11-16 11:57 | W.PN.HOSP.TC ---
Today's Communication/Plan
-
Start amoxicillin for treatment of UTI
Will schedule low-dose of tramadol at bedtime as a standing dose
Assessment / Plan
Assessment / Plan
Physical Exam
General: cachexia, No Apparent Distress, Conversant and denies Pain
HEENT: Normocephalic, Moist mucous membranes, Atraumatic, [place] Conjunctivae, Nose Appears Normal and Ears Appear Normal
Respiratory: Clear
Cardiac: S1/S2,
GI: Soft, Non Tender, Non Distended
Rectal: No bleeding
Genito-urinary: Pfeiffer, no hematuria.
Musculoskeletal: No Clubbing, No Cyanosis and No Edema
Skin: Warm. No Rash
Neuro: Awake, Alert, oriented to self and surroundings, forgetful?, he followed commands.
Psych: Calm
#History of gait dysfunction/ acute on chronic back pain
Pain is not better,
MRI of the lumbar thoracic area showed mild acute/subacute T10, L2 and L4 compression fractures with no lytic lesions. Multilevel degenerative changes of the thoracolumbar spine.
Elevated ESR & CRP but not very high to suspect rheumatological process. I think elevated to related to UTI
Negative blood call
Head: No acute intracranial abnormalities.
Findings compatible with diffuse cortical atrophy with mild nonspecific white matter changes as described above.
Lumbar CT: Moderate T12 and L1 vertebral compression fractures most likely remote, cannot entirely exclude subacute component, without retropulsion of bony elements.
Marked degenerative disc disease with disc bulges at several levels, as detailed above.
Mild aneurysmal dilatation with marked atherosclerotic changes of the distal abdominal aorta measuring up to 3.3 cm (measured 3.1 cm on prior abdominal aortic ultrasound May 17, 2022). Cannot exclude
small chronic distal abdominal aortic dissection.
c/w Tylenol BID
Added low dose Tramadol for severe pain
# Urinary tract infection related to chronic Pfeiffer/chronic indwelling catheter
Start the patient on oral amoxicillin.
Urine culture came positive for polymicrobial likely colonization but because of history of weakness and leukocytosis, will do 7 days of oral antibiotic to treat Enterococcus.
This plan was also discussed with ID doctor over the phone.
#essential hypertension
- continue carvedilol and furosemide
#hyperlipidemia
- continue atorvastatin
#paroxysmal atrial fibrillation
- continue carvedilol and Eliquis
#atherosclerotic heart disease
#aortic stenosis
#mitral regurgitation
ECHO (10/15/2024): Normal left ventricular size, wall thickness and systolic function. No regional wall motion abnormalities are seen. Estimated ejection fraction is 50-55 % visually. Diastolic function normal.
Mitral annular calcification. Prolapse of the posterior mitral leaflet was present. Severe mitral regurgitation. ERO is 32 cm2. Mitral valve regurgitant volume is 56 ml. Probable flow reversal in the left
pulmonary vein.
Moderately dilated left atrium. Indexed LA volume is moderately abnormal (42-48 mL/m2).
Well seated #27 bovine prosthetic valve. Peak/mean gradients across the aortic valve are 10/6 mm Hg. Trace aortic insufficiency.
Tricuspid valve opens normally. Mild to moderate tricuspid regurgitation.
Estimated pulmonary artery pressure of 38 mmHg assuming a right atrial pressure of 8 mmHg.
Since echocardiogram May 2022 which was reviewed, ejection fraction has improved from 30-35% to 50-55%.
- continue atorvastatin
#CKD IIIb
No renal colic
No hematuria
Urine is positive for occult blood/RBC/WBC
# Leukocytosis,
No fever
No hypoxia
urine test is positive for, will do ampicillin
#chronic anemia
hgb 11.6, hct 36.6
- stable
#BPH
chronic Pfeiffer in place for retention
due for change in next week or two
#AAA
stable since 2021
#GERD
Code status: DNR
DVT prophylaxis: Eliquis
Total time spent to see the patient, examine the patient, review data and lab results, discuss treatment plan with patient, son and nursing staff around 55 minutes
Anticipated Discharge: Within 24 hours
Subjective/Interval History
-
Date of Service: November 16, 2024
Same back pain
No fevers
No chest pain
Objective Data
-
Labs:
Laboratory Results
11/16/24
07:28
WBC 11.6 H
Hgb 9.7 L
Hct 30.4 L
Plt Count 185
Sodium 137
Potassium 4.4
Chloride 98
Carbon Dioxide 32 H
BUN 40 H
Creatinine 1.4 H
Glucose 83
Calcium 9.1
Vital Signs:
Vital Signs
Temp Pulse Resp BP Pulse Ox
97.4 F 62 17 127/89 94
11/16/24 07:00 11/16/24 08:34 11/16/24 07:00 11/16/24 08:34 11/16/24 09:49
I&O
11/15/24 11/16/24 11/17/24
06:59 06:59 07:59
Intake Total 960 / 960 1859 / 1859
Output Total 1300 / 1300 1850 / 1849
Balance -340 / -340
[2024-11-16 15:00] VITALS: BP 111/65
[2024-11-16] MEDS: ULTRAM 25 MG PO (17:13)
[2024-11-16 23:25] VITALS: BP 123/51
[2024-11-17 07:00] VITALS: BP 121/59
[2024-11-17] MEDS: AMOXIL 500 MG PO ×2 (09:12→19:46)
[2024-11-17] MEDS: ELIQUIS 2.5 MG PO ×2 (09:13→19:46)
[2024-11-17] MEDS: COREG 3.125 MG PO ×2 (09:13→19:49)
[2024-11-17] MEDS: LIPITOR 40 MG PO (09:13)
[2024-11-17] MEDS: TYLENOL 1000 MG PO ×2 (09:13→19:48)
--- NOTE | 2024-11-17 11:18 | W.PN.HOSP.TC ---
Today's Communication/Plan
-
Continue ampicillin
Continue pain control with as needed tramadol and standing dose of Tylenol
Assessment / Plan
Assessment / Plan
Physical Exam
General: cachexia, No Apparent Distress, Conversant and denies Pain
HEENT: Normocephalic, Moist mucous membranes, Atraumatic, [place] Conjunctivae, Nose Appears Normal and Ears Appear Normal
Respiratory: Clear
Cardiac: S1/S2,
GI: Soft, Non Tender, Non Distended
Rectal: No bleeding
Genito-urinary: Pfeiffer, no hematuria.
Musculoskeletal: No Clubbing, No Cyanosis and No Edema
Skin: Warm. No Rash
Neuro: Awake, Alert, oriented to self and surroundings, forgetful?, he followed commands.
Psych: Calm
#History of gait dysfunction/ acute on chronic back pain
He reports pain is less and better
MRI of the lumbar thoracic area showed mild acute/subacute T10, L2 and L4 compression fractures with no lytic lesions. Multilevel degenerative changes of the thoracolumbar spine.
Elevated ESR & CRP but not very high to suspect rheumatological process. I think elevated to related to UTI
Negative blood call
Head: No acute intracranial abnormalities.
Findings compatible with diffuse cortical atrophy with mild nonspecific white matter changes as described above.
Lumbar CT: Moderate T12 and L1 vertebral compression fractures most likely remote, cannot entirely exclude subacute component, without retropulsion of bony elements.
Marked degenerative disc disease with disc bulges at several levels, as detailed above.
Mild aneurysmal dilatation with marked atherosclerotic changes of the distal abdominal aorta measuring up to 3.3 cm (measured 3.1 cm on prior abdominal aortic ultrasound May 17, 2022). Cannot exclude
small chronic distal abdominal aortic dissection.
c/w Tylenol BID
Added low dose Tramadol for severe pain
# Urinary tract infection related to chronic Pfeiffer/chronic indwelling catheter
Start the patient on oral amoxicillin.
Urine culture came positive for polymicrobial likely colonization but because of history of weakness and leukocytosis, will do 7 days of oral antibiotic to treat Enterococcus.
This plan was also discussed with ID doctor over the phone.
#essential hypertension
- continue carvedilol and furosemide
#hyperlipidemia
- continue atorvastatin
#paroxysmal atrial fibrillation
- continue carvedilol and Eliquis
#atherosclerotic heart disease
#aortic stenosis
#mitral regurgitation
ECHO (10/15/2024): Normal left ventricular size, wall thickness and systolic function. No regional wall motion abnormalities are seen. Estimated ejection fraction is 50-55 % visually. Diastolic function normal.
Mitral annular calcification. Prolapse of the posterior mitral leaflet was present. Severe mitral regurgitation. ERO is 32 cm2. Mitral valve regurgitant volume is 56 ml. Probable flow reversal in the left
pulmonary vein.
Moderately dilated left atrium. Indexed LA volume is moderately abnormal (42-48 mL/m2).
Well seated #27 bovine prosthetic valve. Peak/mean gradients across the aortic valve are 10/6 mm Hg. Trace aortic insufficiency.
Tricuspid valve opens normally. Mild to moderate tricuspid regurgitation.
Estimated pulmonary artery pressure of 38 mmHg assuming a right atrial pressure of 8 mmHg.
Since echocardiogram May 2022 which was reviewed, ejection fraction has improved from 30-35% to 50-55%.
- continue atorvastatin
#CKD IIIb
No renal colic
No hematuria
No flank pain.
# Leukocytosis,
No fever
No hypoxia
WBC coming down
#chronic anemia
hgb 11.6, hct 36.6
Hemoglobin dropped 9-10, suspect baseline. No evidence of melena or active bleeding.
#BPH
chronic Pfeiffer in place for retention
due for change in next week or two
#AAA
stable since 2021
#GERD
Code status: DNR
DVT prophylaxis: Eliquis
Total time spent to see the patient, examine the patient, review data and lab results, discuss treatment plan with patient, son and nursing staff around 55 minutes
Anticipated Discharge: Within 24 hours
Subjective/Interval History
-
Date of Service: November 17, 2024
He reports less back pain
Objective Data
-
Vital Signs:
Vital Signs
Temp Pulse Resp BP Pulse Ox
98.0 F 71 17 121/59 100
11/17/24 07:00 11/17/24 07:00 11/17/24 07:00 11/17/24 07:00 11/17/24 07:00
I&O
11/16/24 11/17/24 11/18/24
05:59 06:59 06:59
Intake Total
Output Total
Balance
[2024-11-17 12:53] VITALS: BP 117/58; PULSE 77; O2SAT 100
[2024-11-17 15:00] VITALS: BP 116/55
[2024-11-17] MEDS: ULTRAM 25 MG PO (18:01)
[2024-11-17 23:15] VITALS: BP 114/55
[2024-11-18 07:20] VITALS: BP 118/59
[2024-11-18 08:01] LABS: Blood Urea Nitrogen 36 mg/dl (9-20); Calcium 9.2 mg/dl (8.4-10.2); Carbon Dioxide 34 mmol/L (22-30); Chloride 100 mmol/L (98-107); Estimated Creatinine Clearance 27 ml/min; Glucose 85 mg/dl (70-99); Potassium 4.7 mmol/L (3.5-5.1); Sodium 136 mmol/L (135-145); eGFR 48.04
[2024-11-18] MEDS: TYLENOL 1000 MG PO ×2 (08:50→19:45)
[2024-11-18] MEDS: LIPITOR 40 MG PO (08:50)
[2024-11-18] MEDS: ELIQUIS 2.5 MG PO ×2 (08:50→19:46)
[2024-11-18] MEDS: AMOXIL 500 MG PO (08:51)
[2024-11-18] MEDS: COREG 3.125 MG PO ×2 (08:51→19:46)
[2024-11-18 09:14] LABS: Hematocrit 28.7 % (39.0-52.0); Hemoglobin 9.3 g/dL (13.0-18.0); Mean Corp Hgb Conc. 32.4 g/dL (33.0-37.0); Mean Corpuscular Hgb 32.6 pg (27.0-31.0); Mean Corpuscular Volume 100.7 fL (80.0-94.0); Mean Platelet Volume 10.7 fL (7.4-10.4); Platelet Count 173 10^3/uL (130-400); Red Blood Cell Count 2.85 10^6/uL (4.70-6.10); Red Cell Dist. Width 14.3 % (11.5-14.5); White Blood Cell Count 14.8 10^3/uL (4.8-10.8)
[2024-11-18 10:03] VITALS: BP 107/56; PULSE 70; O2SAT 99
[2024-11-18 10:04] VITALS: BP 107/56; PULSE 70; O2SAT 100
--- NOTE | 2024-11-18 10:45 | CON.ID ---
Addendum entered and electronically signed by Dayron Clayton DO 11/18/24 14:19:
I personally performed a history and physical exam of the patient and discussed management with the resident. I reviewed the resident's note and agree with the documented findings and plan of care HPI/CC.
Plan:
At present, patient without symptoms of UTI.
Cazares cath with clear urine (no sediment or blood).
Etiology of leukocytosis may be multi-factorial, including pain from compression fractures.
Urine culture difficult to interpret in the context of chronic Cazares catheter, but likely represents bacterial colonization without infection.
Would discontinue further antibiotics.
Patient will need follow-up with Urology as an outpatient for Cazares catheter change.
Case discussed with Hospitalist.
Original Note:
Consultation
-
Date/Time Consultation Requested: 11/18/2024
Date/Time Consultation Performed: 11/19/2019
Requesting Provider: Dr. Dayron Clayton
Performing Provider: Dr. Nikhil Baldwin
Reason for Consultation: Chronic Cazares with polymicrobial cultures
Chief Complaint / Past History
History of Present Illness
Patient is a 89-year-old male with significant history of chronic indwelling cazares's catheter due to BPH . He is unable to provide much history. Patient was seen 11/08/24, for increased back pain, no acute findings and was discharged
back home. Since then patient continues with back pain and difficulty ambulating. He had a fall 7 days ago in the bathroom. Patient needed a shower and while showering felt he needed to go to the bathroom, he went to get out and fell forward.
Denies hitting his head or any LOC. Patient complaining of lower abdominal discomfort, clear yellow urine in the bag. Patient denies any recent fever, chills, cough, shortness of breath, chest pain, nausea, vomiting, constipation or diarrhea.
Patient's catheter is changed by the urologist.
Past History
Additional Past Medical History:
Essential hypertension
hyperlipidemia
paroxysmal atrial fibrillation
atherosclerotic heart disease
CKD III
BPH
Chronic cazares's catheter
Additional Past Surgical History:
Appendectomy
Arthroscopy knee (right)
sebaceous cyst-sternum surgery
LEFT KNEE SURGERY
PCI with STENT
TONSILLECTOMY
AVR (27mm bovine pericardial tissue valve
CABG x 1 with a MCKEON to LAD (12/05/17)
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
new battery for pacemaker 07/2021
Allergy History:
No Known Allergies Allergy (Unverified 11/14/24 11:55)
Medications Reviewed: Yes
Current Antibiotics:
amoxicillin
Social History
Tobacco: Former Smoker
Alcohol: None
Drug: None
Living: Alone
Employment: Retired
Family History
Family History: Not Pertinent
Review of Systems
Vital Signs
Temp Pulse Resp BP Pulse Ox
97.7 F 71 16 118/59 98
11/18/24 07:20 11/18/24 07:20 11/18/24 07:20 11/18/24 07:20 11/18/24 07:20
Physical Exam
Physical Exam
Constitutional: No Acute Distress
Head: Normocephalic
Eyes: Pupils Equal and Pupils Round
Cardiovascular: Regular Rate, S1/S2 and Murmur (grade 5/6 systolic mumur in AVELINA, ANDREW border)
Pulmonary: Clear
Gastrointestinal: Soft, Non Tender, Non Distended and Normal Bowel Sounds
Genito-Urinary: Cazares
Neurological: Awake, Alert and Other (not oriented to time)
Psychological: Calm
Lab / Diagnostic Study Results
11/18/24 08:59
11/18/24 06:54
Abs Immat Gran (auto) 0.6 10^3/uL (0-0.05) H 11/11/24 18:05
Absolute Neuts (auto) 16.9 10^3/uL (1.4-6.5) H 11/11/24 18:05
Absolute Lymphs (auto) 0.9 10^3/uL (1.2-3.4) L 11/11/24 18:05
Absolute Monos (auto) 0.4 10^3/uL (0.1-0.6) 11/11/24 18:05
Absolute Basos (auto) 0.0 10^3/uL (0-0.2) 11/11/24 18:05
Immature Gran % 3.4 % (0-0.5) H 11/11/24 18:05
Neutrophils % 89.9 % (42.2-75.2) H 11/11/24 18:05
Lymphocytes % 4.5 % (20.5-51.1) L 11/11/24 18:05
Monocytes % 2.0 % (1.7-9.3) 11/11/24 18:05
Eosinophils % 0.0 % (0-6) 11/11/24 18:05
Basophils % 0.2 % (0-2) 11/11/24 18:05
ESR 61 mm/hour (0-20) H 11/15/24 11:16
C-Reactive Protein 13.40 mg/L (0.0-10.00) H 11/15/24 11:16
Ur Squamous Epith Cells 3-5 /LPF (Few) 11/12/24 08:59
Microbiology Results
Micro:
11/13/24 07:41 Blood Culture - Final
Blood/Venous No Growth - Final Report
11/12/24 08:59 Urine Culture - Final
Urine Enterococcus faecalis
Staphylococcus lugdunensis
Enterococcus species
Coagulase neg. staphylococcus
Imaging
Thoracic spine MRI : Mild acute/subacute T10, L2 and L4 compression fractures. No overt osseous retropulsion. Multilevel degenerative changes of the thoracolumbar spine
Assessment / Plan
89-year-old male presented with ambulatory dysfunction and compression fractures. ID was consulted to comment on positive polymicrobial urine cultures.
Assessment and plan
Asymptomatic cystitis with postive urine cultures
+enterococcus faecalis , staph lugdunesis
Likely contaminant due to chronic catheter
Afebrile, asymptomatic, with WBC count 14.8.
No need to treat at the juncture
Negative blood culture.
Recommend to change catheter outpatient
Follow WBC count outpatient.
--- NOTE | 2024-11-18 12:41 | CM ---
Addendum entered by Rox Ornelas 11/18/24 15:56:
Pending reference number [id number] faxed clinicals to [phone]
Addendum entered by Rox Ornelas 11/18/24 13:30:
Patient seen at bedside with physician. CM will continue to follow to work on auth.
Original Note:
Patient son spoke with CM and requested [facility] as first choice. CM tt to liaison at [facility] awaiting response.
[2024-11-18 15:25] VITALS: BP 111/56
--- NOTE | 2024-11-18 15:59 | W.PN.HOSP.TC ---
Today's Communication/Plan
-
stop ABX
hopeful d/c to SNF
Assessment / Plan
Assessment / Plan
pt is an 89 year old male
History of gait dysfunction/ acute on chronic back pain--MRI of the lumbar thoracic area showed mild acute/subacute T10, L2 and L4 compression fractures with no lytic lesions. Multilevel degenerative changes of the thoracolumbar spine--PT/OT--pain
control--for SNF in AM
chronic Pfeiffer/chronic indwelling catheter --doubt UTI, feel more likely colonization--apprec ID, can stop ABX
essential hypertension- continue carvedilol and furosemide
hyperlipidemia- continue atorvastatin
paroxysmal atrial fibrillation- continue carvedilol and Eliquis
atherosclerotic heart disease/aortic stenosis/mitral regurgitation--ECHO done 10/15/24, EF 50-55%, Severe mitral regurgitation, bovine prosthetic valve--continue atorvastatin
CKD IIIb--renal dose meds
Leukocytosis--possibly reactive from compression fx--No fever--No hypoxia--no UTI
chronic anemia--Hemoglobin 9-10, suspect baseline. No evidence of melena or active bleeding.
BPH--chronic Pfeiffer in place for retention
AAA-stable since 2021
GERD
Code status--DNR
DVT prophylaxis: Eliquis
Anticipated Discharge: Within 24 hours
Subjective/Interval History
-
Date of Service: November 18, 2024
pt seems confused--asking same questions
Objective Data
-
Labs:
Laboratory Results
11/18/24 11/18/24
06:54 08:59
WBC 14.8 H
Hgb 9.3 L
Hct 28.7 L
Plt Count 173
Sodium 136
Potassium 4.7
Chloride 100
Carbon Dioxide 34 H
BUN 36 H
Creatinine 1.4 H
Glucose 85
Calcium 9.2
Vital Signs:
max temp for 24 hours
11/17/24
07:00
Temp 98.0 F
Vital Signs
Temp Pulse Resp BP Pulse Ox
97.7 F 71 16 118/59 99
11/18/24 07:20 11/18/24 07:20 11/18/24 07:20 11/18/24 07:20 11/18/24 08:30
I&O
11/17/24 11/18/24 11/19/24
06:59 06:59 06:59
Intake Total 1800 / 1800
Output Total 750 / 750
Balance 1050 / 1050
Review of Systems
-
All other systems: Reviewed and negative
Physical Exam
-
General: Well Developed, Well Nourished and No Apparent Distress
HEENT: Normocephalic and Atraumatic; Negative Oxygen
Respiratory: Clear to Auscultation; Negative Wheezes or Rhonchi
Cardiac: Regular Rhythm, S1/S2 and Murmur
GI: Soft, Nontender, Nondistended and Normal Bowel Sounds
Genito-urinary: Pfeiffer (chronic)
Musculoskeletal: No Clubbing, No Cyanosis and No Edema
Neuro: Awake and Alert
[2024-11-18] MEDS: ULTRAM 25 MG PO (17:30)
[2024-11-18 23:00] VITALS: BP 118/54
[2024-11-19 07:30] VITALS: BP 108/58
[2024-11-19] MEDS: LIPITOR 40 MG PO (08:49)
[2024-11-19] MEDS: ELIQUIS 2.5 MG PO (08:49)
[2024-11-19] MEDS: COREG 3.125 MG PO (08:49)
[2024-11-19] MEDS: TYLENOL 1000 MG PO (08:49)
--- NOTE | 2024-11-19 11:10 | CM ---
Patient seen at bedside, plan for transfer to [facility] when authorization confirmed. Patient son to transport. CM will continue to follow for discharge planning needs.
Plan; transfer to SNF
--- NOTE | 2024-11-19 11:12 | W.PN.HOSP.TC ---
Today's Communication/Plan
-
d/c to SNF pending auth
Assessment / Plan
Assessment / Plan
pt is an 89 year old male
History of gait dysfunction/ acute on chronic back pain--MRI of the lumbar thoracic area showed mild acute/subacute T10, L2 and L4 compression fractures with no lytic lesions. Multilevel degenerative changes of the thoracolumbar spine--PT/OT--pain
control--for SNF pending auth
chronic Pfeiffer/chronic indwelling catheter --doubt UTI, feel more likely colonization--apprec ID, can stop ABX
essential hypertension- continue carvedilol and furosemide
hyperlipidemia- continue atorvastatin
paroxysmal atrial fibrillation- continue carvedilol and Eliquis
atherosclerotic heart disease/aortic stenosis/mitral regurgitation--ECHO done 10/15/24, EF 50-55%, Severe mitral regurgitation, bovine prosthetic valve--continue atorvastatin
CKD IIIb--renal dose meds
Leukocytosis--possibly reactive from compression fx--No fever--No hypoxia--no UTI
chronic anemia--Hemoglobin 9-10, suspect baseline. No evidence of melena or active bleeding.
BPH--chronic Pfeiffer in place for retention
AAA-stable since 2021
GERD
Code status--DNR
DVT prophylaxis: Eliquis
Anticipated Discharge: Today
Subjective/Interval History
-
Date of Service: November 19, 2024
pt without c/o
Objective Data
-
Vital Signs:
max temp for 24 hours
11/18/24
23:00
Temp 98.0 F
Vital Signs
Temp Pulse Resp BP Pulse Ox
97.8 F 71 16 108/58 98
11/19/24 07:30 11/19/24 07:30 11/19/24 07:30 11/19/24 07:30 11/19/24 08:00
I&O
11/18/24 11/19/24 11/20/24
06:59 06:59 06:59
Intake Total 1800 / 1800 1800 / 1800
Output Total 750 / 750 1000 / 1000
Balance 1050 / 1050 800 / 800
Review of Systems
-
All other systems: Reviewed and negative
Physical Exam
-
General: Well Developed, Well Nourished and No Apparent Distress
HEENT: Normocephalic and Atraumatic
Respiratory: Clear to Auscultation; Negative Wheezes or Rhonchi
Cardiac: Regular Rhythm and S1/S2; Negative Murmur
GI: Soft, Nontender, Nondistended and Normal Bowel Sounds
Genito-urinary: Pfeiffer
Musculoskeletal: No Clubbing, No Cyanosis and No Edema
Skin: Warm
Neuro: Awake
--- NOTE | 2024-11-19 12:00 | CM ---
Addendum entered by Rox Ornelas 11/19/24 12:14:
Patient son now wants to have patient go via ambulance. CM will complete transportation forms and fax to floor.
Original Note:
Patient seen at bedside with physician. Patient given IMM forms to review with son. Insurance called Andrea from [place] to provide approval information . reference number [id number] Erika Malone [phone] approved from 11/19-11/21. CM updated liaison at
[facility] Please call report to [phone]/fax [phone]. CM will call patient son to update, review IMM and provide transportation. CM will continue to follow for discharge planning needs.
Plan; [facility] today
[2024-11-19 14:00] VITALS: BP 112/58
--- NOTE | 2024-11-19 17:06 | W.DCSUMMARY ---
Discharge Summary
Discharge Data
Date of Admission: 11/15/24
Date of Discharge: 11/19/24
-
Pending Results: No
Hospital Course
Primary care physician : Tucker Nath
Principal Discharge diagnosis : History of gait dysfunction with acute on chronic back pain
Chronic Discharge diagnosis : Benign prostatic hyperplasia with chronic indwelling Pfeiffer catheter on admission, essential hypertension, hyperlipidemia, paroxysmal atrial fibrillation, atherosclerotic heart disease/aortic stenosis/mitral
regurgitation, chronic kidney disease stage IIIb, anemia of chronic disease, leukocytosis
Hospital Course : Patient was an 89-year-old male who presented after a fall in the shower. Patient's son was at the bedside and he was seen Monday prior to admission for increased back pain. No acute findings were discovered and he was discharged
home. Since that time, the patient continued with back pain and difficulty ambulating. Patient needed to shower and while showering he felt that he needed to go to the bathroom, got out of the shower and fell forward. He denied hitting his head
or any loss of consciousness. Workup in the emergency room was found to be negative and the patient was admitted.
Problem #1: History of gait dysfunction with acute on chronic back pain. Patient was provided pain control. Thoracic and lumbar MRIs were performed which showed acute to subacute compression fractures of T10, L2 and L4 without any overt osseous
retropulsion. Patient was seen in consultation by PT and OT and they are recommending jail facility at this time. Multilevel degenerative changes were also present.
Problem #2: All other medical issues. These include Benign prostatic hyperplasia with chronic indwelling Pfeiffer catheter on admission, essential hypertension, hyperlipidemia, paroxysmal atrial fibrillation, atherosclerotic heart disease/aortic
stenosis/mitral regurgitation, chronic kidney disease stage IIIb, anemia of chronic disease, leukocytosis. These medical issues were stable during his hospitalization. Medications were continued as able. In regards to his presumed urinary tract
infection, patient has a chronic indwelling Pfeiffer catheter. It was not changed prior to having the urinalysis and culture results obtained. There were multiple organisms found including Enterococcus faecalis, Staphylococcus lugdunensis,
Enterococcus species, coagulase-negative staph. Patient was started on antibiotics. Infectious disease was consulted and does not feel (nor do I) that this is an active urinary tract infection. This is most likely colonization from his Pfeiffer
catheter which again was not changed prior to obtaining the specimen. Antibiotics were stopped.
Patient is stable for discharge to the jail facility at this time. If there are any questions regarding this dictation or his hospital stay, please not hesitate to call. Our office number is [phone].
Important imaging findings :
LUMBAR SPINE MRI IMPRESSION:
Mild acute/subacute T10, L2 and L4 compression fractures. No overt osseous retropulsion.
Multilevel degenerative changes of the thoracolumbar spine as detailed.
THORACIC SPINE MRI IMPRESSION:
Mild acute/subacute T10, L2 and L4 compression fractures. No overt osseous retropulsion.
Multilevel degenerative changes of the thoracolumbar spine as detailed.
Discharge Plan
-
Patient Disposition: [facility]/SNF
Discharge Diagnosis/Procedures: Gait dysfunction with acute on chronic back pain, chronic indwelling Pfeiffer catheter, essential hypertension, hyperlipidemia, paroxysmal atrial fibrillation, atherosclerotic heart disease/aortic stenosis/mitral
regurgitation, chronic kidney disease stage IIIb, anemia of chronic disease, benign prostatic hyperplasia, abdominal aortic aneurysm, gastroesophageal reflux disease
Condition: Fair
Diet: As tolerated and Regular
Activity: As tolerated
Driving Restrictions: Not until seen by your Dr
Bathing Restrictions: None
Referrals:
Tucker Nath MD [Family Provider] - in less than 1 week
Prescriptions:
New
acetaminophen [Tylenol Extra Strength] 500 mg Tablet
1,000 mg PO BID Qty: 0 0RF
tramadol 50 mg Tablet
25 mg PO 1800 Qty: 10 0RF
tramadol 50 mg Tablet
25 mg PO DAILYPRN PRN (Reason: severe pain) Qty: 10 0RF
Continued
atorvastatin 40 MG tablet
40 mg PO DAILY
furosemide 20 MG tablet
20 mg PO DAILY
Eliquis 2.5 mg Tablet
2.5 mg PO BID
carvedilol 3.125 mg Tablet
3.125 mg PO BID Qty: 60 0RF
Discontinued
acetaminophen [Tylenol Extra Strength] 500 mg Tablet
1,000 mg PO Q6HPRN PRN (Reason: back pain)
Discharge Orders:
Discharge Patient (As Directed); Ordered 11/19/24
Ordered By: Cher Curtis
Discharge Date and Time
Discharge Date/Time: 11/19/24 14:22
Print Language: ARMENIAN
== END 2024-11-19 14:22 | DRG 552 ==
LOC: 3 WEST ACU 10:44
PROVIDERS: Internal Medicine; Nurse Practitioner Family; Physician Assistant; ADMITTING PHYSICIAN Internal Medicine; ATTENDING PHYSICIAN Internal Medicine; EMERGENCY PHYSICIAN Student in an Organized Health Care Education/Training Program; FAMILY PHYSICIAN Internal Medicine; OTHER PHYSICIAN Student in an Organized Health Care Education/Training Program
DX: S32.010A Wedge compression fracture of first lumbar vertebra, initial encounter for closed fracture (principal); T83.511A Infection and inflammatory reaction due to indwelling urethral catheter, initial encounter; I13.0 Hypertensive heart and chronic kidney disease with heart failure and stage 1 through stage 4 chronic kidney disease, or unspecified chronic kidney disease; I50.42 Chronic combined systolic (congestive) and diastolic (congestive) heart failure; R64 Cachexia; Z68.1 Body mass index [BMI] 19.9 or less, adult; M54.9 Dorsalgia, unspecified; Z87.891 Personal history of nicotine dependence; N18.32 Chronic kidney disease, stage 3b; I48.0 Paroxysmal atrial fibrillation; I25.10 Atherosclerotic heart disease of native coronary artery without angina pectoris; I08.3 Combined rheumatic disorders of mitral, aortic and tricuspid valves; D63.1 Anemia in chronic kidney disease; N40.0 Benign prostatic hyperplasia without lower urinary tract symptoms; I71.40 Abdominal aortic aneurysm, without rupture, unspecified; K21.9 Gastro-esophageal reflux disease without esophagitis; Z66 Do not resuscitate; Z79.01 Long term (current) use of anticoagulants; Z60.2 Problems related to living alone; E78.00 Pure hypercholesterolemia, unspecified; R26.2 Difficulty in walking, not elsewhere classified; N30.90 Cystitis, unspecified without hematuria; W18.2XXA Fall in (into) shower or empty bathtub, initial encounter; Y73.8 Miscellaneous gastroenterology and urology devices associated with adverse incidents, not elsewhere classified; G89.29 Other chronic pain; Z95.1 Presence of aortocoronary bypass graft; Z95.5 Presence of coronary angioplasty implant and graft
CPT/HCPCS: 70450; 71046; 72131; 72146; 72148; 80048; 80053; 81003; 81015; 85025; 85027; 85652; 86140; 87040; 87077; 87086; 87147; 87186; 97116; 97162; 97167; 97530; 97535; 99285

== ENCOUNTER → 2024-11-22 10:29 | Outpatient (REF) | payer OTHER, MEDICARE, SELFPAY ==
[2024-11-22 13:21] LABS: Blood Urea Nitrogen 37 mg/dl (9-20); Carbon Dioxide 31 mmol/L (22-30); Chloride 103 mmol/L (98-107); Glucose 82 mg/dl (70-99); Potassium 4.6 mmol/L (3.5-5.1); Sodium 138 mmol/L (135-145); eGFR 44.23
[2024-11-22 13:45] LABS: Hematocrit 26.8 % (39.0-52.0); Hemoglobin 8.7 g/dL (13.0-18.0); Mean Corp Hgb Conc. 32.5 g/dL (33.0-37.0); Mean Corpuscular Hgb 32.6 pg (27.0-31.0); Mean Corpuscular Volume 100.4 fL (80.0-94.0); Mean Platelet Volume 10.5 fL (7.4-10.4); Platelet Count 190 10^3/uL (130-400); Red Blood Cell Count 2.67 10^6/uL (4.70-6.10); Red Cell Dist. Width 14.5 % (11.5-14.5); White Blood Cell Count 12.3 10^3/uL (4.8-10.8)
[2024-11-22 14:06] LABS: % Basophils 0.9 % (0-2); % Eosinophils 3.3 % (0-6); % Immature Granulocytes 5.5 % (0-0.5); % Lymphocytes 9.9 % (20.5-51.1); % Monocytes 6.7 % (1.7-9.3); % Neutrophils 73.7 % (42.2-75.2); Absolute Basophils 0.1 10^3/uL (0-0.2); Absolute Eosinophils 0.4 10^3/uL (0-0.7); Absolute Immature Granulocytes 0.7 10^3/uL (0-0.05); Absolute Lymphocytes 1.2 10^3/uL (1.2-3.4); Absolute Monocytes 0.8 10^3/uL (0.1-0.6); Absolute Neutrophils 9.1 10^3/uL (1.4-6.5); Nucleated Red Blood Cells % 0 % (-)
== END ==
LOC: OLABP 10:29
PROVIDERS: ATTENDING PHYSICIAN Family Medicine
DX: M62.59 Muscle wasting and atrophy, not elsewhere classified, multiple sites (principal); M54.50 Low back pain, unspecified; R26.2 Difficulty in walking, not elsewhere classified; I10 Essential (primary) hypertension; D64.9 Anemia, unspecified; N18.30 Chronic kidney disease, stage 3 unspecified; N40.0 Benign prostatic hyperplasia without lower urinary tract symptoms; K21.9 Gastro-esophageal reflux disease without esophagitis; I25.10 Atherosclerotic heart disease of native coronary artery without angina pectoris; I71.40 Abdominal aortic aneurysm, without rupture, unspecified; Z43.6 Encounter for attention to other artificial openings of urinary tract
CPT/HCPCS: 36415; 80048; 85025